=== PATIENT | female | born 1935 | race Caucasian/White ===

== ENCOUNTER 2016-05-12 18:18 | Emergency (ER) | payer MEDICARE, OTHER ==
[2016-05-12] MEDS ORDERED: BACITRACIN OINT TOP ONE (18:41)
--- NOTE | 2016-05-12 18:41 | ED Physician Documentation ---
PD HPI UPPER EXT INJURY - Stated complaint Stated Complaint: L THUMB LACERATION - Chief complaint Chief Complaint: Ext Problem - Additonal information Additional information: 80-year-old female with history of hypertension and hyperlipidemia who is right- hand dominant here with injury to left thumb. Patient was chopping cabbage when she nicked the tip of her left thumb. She denies any numbness or weakness to the thumb. She attempted to stop the bleeding at home but was unable to do so. She is not up-to-date with her tetanus vaccine. 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, 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 HEENT: Cataracts, Tonsil/Adenoidectomy - Present Medications Home Medications: Ambulatory Orders Medication Instructions Recorded Confirmed Atorvastatin Calcium 20 mg PO DAILY 06/24/15 05/12/16 Calcium Carbonate/Vitamin D3 1 each PO DAILY 06/24/15 05/12/16 [Calcium 500 + Vit D Caplet] Multivit with Calcium,Iron,Min 1 each PO DAILY 06/24/15 05/12/16 [Multiple Vitamins For Women] Psyllium [Metamucil] 1 packet PO DAILY 07/19/15 05/12/16 Latanoprost 0.005% Ophth Drops 1 drops OPTH QPM 08/02/15 05/12/16 [Xalatan Ophth Drops] - Allergies Allergies/Adverse Reactions: Allergies Allergy/AdvReac Type Severity Reaction Status Date / Time iodine Allergy Unknown Verified 06/24/15 11:24 morphine Allergy Unknown Verified 06/24/15 11:24 - Social History Does the pt smoke?: No Smoking Status: Never smoker Does the pt drink ETOH?: No Does the pt have substance abuse?: No - Immunizations Immunizations are current?: Yes PD ED PE NORMAL - Vitals Vital signs reviewed: Yes - General General: Alert and oriented X 3, No acute distress - HEENT HEENT: PERRL - Neck Neck: Supple, no meningeal sign - Cardiac Cardiac: RRR, No murmur - Respiratory Respiratory: Clear bilaterally - Abdomen Abdomen: Normal bowel sounds, Soft, Non tender, Non distended - Derm Derm: Warm and dry - Extremities Extremities: No deformity, Other (Very superficial avulsion of the distal tip of the left thumb with no active bleeding. Neurovascularly intact) - Neuro Neuro: Alert and oriented X 3 - Psych Psych: Normal mood, Normal affect Results - Vitals Vitals: Vital Signs - 24 hr 05/12/16 18:26 Temperature 36.6 C Heart Rate 88 Respiratory 20 Rate Blood Pressure 195/96 H O2 Saturation 95 Oxygen O2 Source Room air PD MEDICAL DECISION MAKING - ED course Complexity details: considered differential, d/w patient, d/w family ED course: 80-year-old female here with distal left thumb avulsion of the skin. Wound was here gated thoroughly, bacitracin and pressure dressing were applied. Patient was given wound care instructions and followup with her primary care physician. She has been given very strict return precautions. She is amenable to discharge at this time with followup. She had her tetanus shot updated. The avulsion is not amenable to laceration repair. This document was made in part using voice recognition software. While efforts are made to proofread this document, sound alike and grammatical errors may occur. Departure - Departure Disposition: 01 Home, Self Care Clinical Impression: Avulsion, finger tip Qualifiers: Encounter type: initial encounter Qualified Code(s): S61.209A - Unspecified open wound of unspecified finger without damage to nail, initial encounter Condition: Stable Instructions: ED Abrasion, ED Wound Care Follow-Up: Gary Chávez MD [Primary Care Provider] - Within 1 week Comments: Your blood pressure was elevated today on check in to the emergency department. This does not mean that you have hypertension, it is a common phenomenon to check into the emergency department and have elevated blood pressure. I recommend that you see your primary care physician within the week to have it rechecked when you're feeling better. Please followup with your primary care provider this week. Return to the ER for any redness, swelling, discharge from the wound, or any fevers, or for any other medical emergency.
[2016-05-12] MEDS ORDERED: TETANUS/DIPHTHERIA/PERTUSSIS 0.5 ML SYRINGE IM ONE (18:52)
[2016-05-12] MEDS: TETANUS/DIPHTHERIA TOXOID 0.5 ML SYRINGE IM ONE (18:56)
[2016-05-12 19:12] VITALS: BP 188/91
== END 2016-05-12 19:11 | disposition home or self-care (01) ==
LOC: ED 18:18
DX: S61.012A Laceration without foreign body of left thumb without damage to nail, initial encounter (principal); W26.0XXA Contact with knife, initial encounter; Y93.G1 Activity, food preparation and clean up; Y92.010 Kitchen of single-family (private) house as the place of occurrence of the external cause; Z23 Encounter for immunization; I10 Essential (primary) hypertension; E78.5 Hyperlipidemia, unspecified; E78.00 Pure hypercholesterolemia, unspecified; M19.90 Unspecified osteoarthritis, unspecified site
CPT/HCPCS: 90471; 99282; 99283

== ENCOUNTER 2016-12-13 01:13 | Outpatient (CLI) | payer MEDICARE, OTHER | END 2016-12-13 01:14 | disposition critical access hospital (66) | LOC: EMS 01:13 | PROVIDERS: ATTEND Surgery | DX: M54.5 Low back pain (principal) | CPT/HCPCS: A0425; A0429 ==

== ENCOUNTER 2016-12-13 01:26 | Emergency (ER) | payer MEDICARE, OTHER ==
[2016-12-13] MEDS ORDERED: SODIUM CHLORIDE 0.9% 1,000 ML IV ONE (01:42)
--- NOTE | 2016-12-13 01:42 | ED Physician Documentation ---
PD HPI BACK PAIN - Stated complaint Stated Complaint: LLQ PN - Chief complaint Chief Complaint: Abd Pain - History obtained from History obtained from: Patient, EMS - History of Present Illness Timing - onset: How many days ago (2) Timing - details: Waxing and waning Location: Mid, Left Quality: Pain Associated symptoms: No: Fever, Weakness, Numbness, Incontinent of urine, Unable to urinate Worsened by: Movement, Palpation Similar symptoms before: Has not had sx before Recently seen: Not recently seen - Additional information Additional information: Patient is an 81 year old female presenting to the emergency department for left flank pain. patient states that it has been going on for the last few days. patient states that she originally thought it was due to the way she was walking, secondary to foot pain. Patient states that tonight she was in bed and it was real severe so her helped her to the bathroom, and they called ems. Review of Systems Constitutional: denies: Fever, Chills, Myalgias Eyes: denies: Decreased vision Ears: reports: Reviewed and negative Nose: denies: Congestion, Sinus pressure / pain Throat: reports: Reviewed and negative Cardiac: denies: Chest pain / pressure, Palpitations, Calf pain Respiratory: denies: Dyspnea, Cough, Wheezing GI: denies: Abdominal Pain, Abdominal Swelling, Nausea, Vomiting, Constipation, Diarrhea : denies: Dysuria, Frequency, Hesitancy, Unable to Void, Hematuria Skin: denies: Rash, Lesions Musculoskeletal: reports: Back pain. 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, 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 HEENT: Cataracts, Tonsil/Adenoidectomy - Present Medications Home Medications: Ambulatory Orders Medication Instructions Recorded Confirmed Atorvastatin Calcium 20 mg PO DAILY 06/24/15 12/13/16 Multivit with Calcium,Iron,Min 1 each PO DAILY 06/24/15 12/13/16 [Multiple Vitamins For Women] Psyllium [Metamucil] 1 packet PO DAILY 07/19/15 12/13/16 Latanoprost 0.005% Ophth Drops 1 drops OPTH QPM 08/02/15 12/13/16 [Xalatan Ophth Drops] Lidocaine Patch 5% [Lidoderm Patch] 1 each TOP DAILY #14 patch 12/13/16 - Allergies Allergies/Adverse Reactions: Allergies Allergy/AdvReac Type Severity Reaction Status Date / Time iodine Allergy Unknown Verified 12/13/16 01:47 morphine Allergy Unknown Verified 12/13/16 01:47 - Social History Does the pt smoke?: No Smoking Status: Never smoker Does the pt drink ETOH?: No Does the pt have substance abuse?: No - Immunizations Immunizations are current?: Yes - POLST Patient has POLST: No PD ED PE NORMAL - Vitals Vital signs reviewed: Yes - General General: Alert and oriented X 3, No acute distress - HEENT HEENT: Atraumatic, PERRL - Neck Neck: Supple, no meningeal sign - Cardiac Cardiac: RRR, No murmur - Respiratory Respiratory: No respiratory distress - Abdomen Abdomen: Soft, Non tender, Non distended - Derm Derm: Normal color, Warm and dry, No rash - Extremities Extremities: No deformity, No tenderness to palpate, No edema - Neuro Neuro: Alert and oriented X 3, 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, No motor deficit, No sensory deficit - Psych Psych: Normal mood, Normal affect PD ED PE EXPANDED - Abdomen Abdomen: No: Distended, Rebound, Guarding - Back Back: CVA TTP left Results - Vitals Vitals: Vital Signs - 24 hr 12/13/16 12/13/16 01:29 03:38 Temperature 36.8 C Heart Rate 83 80 Respiratory 18 18 Rate Blood Pressure 207/83 H 186/69 H O2 Saturation 98 97 Oxygen O2 Source Room air - Labs Labs: Laboratory Tests 12/13/16 12/13/16 12/13/16 01:50 01:50 02:10 WBC 10.2 RBC 4.31 Hgb 13.7 Hct 39.8 MCV 92.3 MCH 31.7 H MCHC 34.4 RDW 12.9 Plt Count 201 MPV 8.6 Neut # 7.0 H Lymph # 1.7 Roberts # 1.0 Eos # 0.4 Baso # 0.1 Absolute Nucleated RBC 0.00 Nucleated RBC % 0.0 Sodium 138 Potassium 4.2 Chloride 104 Carbon Dioxide 26 Anion Gap 8.0 BUN 17 Creatinine 0.7 Estimated GFR (MDRD) 80 L Glucose 116 H Calcium 9.0 Total Bilirubin 0.6 AST 23 ALT 17 Alkaline Phosphatase 79 Total Protein 6.9 Albumin 4.0 Globulin 2.9 Albumin/Globulin Ratio 1.4 Lipase 27 Urine Color YELLOW Urine Clarity CLEAR Urine pH 6.5 Ur Specific Golden 1.020 Urine Protein NEGATIVE Urine Glucose (UA) NEGATIVE Urine Ketones NEGATIVE Urine Occult Blood TRACE-LYSE Urine Nitrite NEGATIVE Urine Bilirubin NEGATIVE Urine Urobilinogen 0.2 (NORMAL) Ur Leukocyte Esterase NEGATIVE Ur Microscopic Review NOT INDICATED Urine Culture Comments NOT INDICATED - Rads (name of study) ct abd and pelvis Radiology: Final report received (no obstruction, diverticulitis ), See rad report PD MEDICAL DECISION MAKING - ED course Complexity details: reviewed old records, reviewed results, re-evaluated patient , considered differential, d/w patient, d/w family ED course: Patient was seen and examined at bedside. IV access was gained, labs were drawn. patient was treated with fluids. urine was collected. patient was treated with toradol for pain. Imaging was ordered. Patient was treated with toradol for pain. When patient's diagnostics came back they were within normal limits. Patient was made aware of the possibility of underlying shingles. Patient required no further work up and was stable for discharge with outpatient follow up. Departure - Departure Disposition: 01 Home, Self Care Clinical Impression: Flank pain, acute Condition: Good Instructions: ED Flank Pain Uncertain Cause Follow-Up: primary,care provider [Other] - Within 3 Days Prescriptions: Lidocaine Patch 5% [Lidoderm Patch] 1 each TOP DAILY #14 patch Comments: Your diagnostics today were within normal limits. there was no explanation in the blood work or CT scan. The pain is likely musculoskeletal in nature. It is still a possibility that the pain is being caused by shingles and the rash has not appeared yet, you should continue to monitor for the rash. You can take motrin or tylenol for pain, as well as the lidoderm patch. If the symptoms persist you should follow up with your doctor.
[2016-12-13 02:04] LABS: BASOPHILS # (AUTO) 0.1 10^3/uL (0.0-0.1); BASOPHILS % (AUTO) 1.1 %; EOSINOPHILS # (AUTO) 0.4 10^3/uL (0.0-0.7); EOSINOPHILS % (AUTO) 3.8 %; HCT - HEMATOCRIT 39.8 % (37.0-47.0); HGB - HEMOGLOBIN 13.7 g/dL (12.0-16.0); LYMPHOCYTES # (AUTO) 1.7 10^3/uL (1.5-3.5); LYMPHOCYTES % (AUTO) 16.9 %; MEAN CORPUSCULAR HEMOGLOBIN 31.7 pg (27.0-31.0); MEAN CORPUSCULAR HGB CONC 34.4 g/dL (32.0-36.0); MEAN CORPUSCULAR VOLUME 92.3 fL (81.0-99.0); MEAN PLATELET VOLUME 8.6 fL (7.9-10.8); MONOCYTES % (AUTO) 9.9 %; NEUTROPHILS % (AUTO) 68.3 %; RED BLOOD COUNT 4.31 10^6/uL (4.20-5.40); RED CELL DISTRIBUTION WIDTH 12.9 % (12.0-15.0); UNCORRECTED WHITE BLOOD COUNT 10.2 x10^3/uL; WHITE BLOOD COUNT 10.2 x10^3/uL (4.8-10.8)
[2016-12-13 02:12] LABS: ALBUMIN/GLOBULIN RATIO 1.4 (1.0-2.2); BILIRUBIN,TOTAL 0.6 mg/dL (0.2-1.0); CREATININE 0.7 mg/dL (0.4-1.0); POTASSIUM 4.2 mmol/L (3.5-5.0); TOTAL PROTEIN 6.9 g/dL (6.7-8.2)
[2016-12-13 02:21] LABS: BILIRUBIN,URINE NEGATIVE (NEGATIVE); PH,URINE 6.5 PH (5.0-7.5); UA CHARGE (STRIP ONLY) YES; UR CULTURE IF IND NOT INDICATED
[2016-12-13] MEDS ORDERED: KETOROLAC 60 MG/2 ML VIAL IVP STA (02:36)
[2016-12-13] MEDS ORDERED: KETOROLAC 15 MG/ML VIAL ONE (02:43)
[2016-12-13] MEDS ORDERED: fentaNYL 100 MCG/2 ML VIAL IVP STA (03:02)
[2016-12-13] MEDS ORDERED: LIDOCAINE PATCH 5% TOP STA (03:02)
[2016-12-13] MEDS ORDERED: fentaNYL 100 MCG/2 ML VIAL ONE (03:08)
[2016-12-13] MEDS ORDERED: SODIUM CHLORIDE FLUSH 0.9% 10 ML SYRINGE IVP ONE (03:11)
[2016-12-13] MEDS ORDERED: LIDOCAINE PATCH 5% TOP ONE (03:39)
--- NOTE | 2016-12-13 03:49 | CT Preliminary Report ---
Exam: CT Abdomen/Pelvis W/O IMPRESSION: 1. Colonic diverticulosis. No definite evidence of diverticulitis. 2. Partial right hemicolectomy. No bowel obstruction seen. 3. No obstructive uropathy identified. 4. Umbilical hernia and infraumbilical ventral hernia, both containing fat. [facility] SITE ID: [id number]
--- NOTE | 2016-12-13 03:52 | CT Report ---
EXAM: CT ABDOMEN AND PELVIS EXAM DATE: 12/13/2016 03:18 AM. CLINICAL HISTORY: Left flank pain. COMPARISONS: None. TECHNIQUE: Routine helical CT imaging was performed through the abdomen and pelvis. IV contrast: None . Enteric contrast: No. Reconstructions: Coronal and sagittal. In accordance with CT protocol optimization, one or more of the following dose reduction techniques w ere utilized for this exam: automated exposure control, adjustment of mA and/or KV based on patient s ize, or use of iterative reconstructive technique. FINDINGS: Lung Bases: Bibasilar atelectasis. Coronary artery calcifications. Liver: No focal lesion identified on this noncontrast examination. Gallbladder/Bile Ducts: Status post cholecystectomy. Spleen: Normal. Pancreas: Normal. Adrenal Glands: Normal. Kidneys: Normal. No masses or hydronephrosis. Peritoneal Cavity/Bowel: Partial right hemicolectomy. Colonic diverticulosis. No definite diverticuli tis. No bowel obstruction seen. No free air or free fluid. No lymphadenopathy. Umbilical hernia conta ining fat. Infraumbilical ventral hernia containing fat. Pelvic Organs: Uterus is not seen. Visualized pelvic organs are otherwise unremarkable. Vasculature: Severe atherosclerosis. No aortic aneurysm. Bones: Degenerative changes in the spine. Grade 1 degenerative spondylolisthesis at L5-S1. Scoliosis. Other: None. IMPRESSION: 1. Colonic diverticulosis. No definite evidence of diverticulitis. 2. Partial right hemicolectomy. No bowel obstruction seen. 3. No obstructive uropathy identified. 4. Umbilical hernia and infraumbilical ventral hernia, both containing fat. [facility] Referring Provider Line: [phone] SITE ID: [id number]
[2016-12-13 04:10] VITALS: BP 210/73
== END 2016-12-13 04:10 | disposition home or self-care (01) ==
LOC: EDUNIT# → ED 01:26
DX: R10.32 Left lower quadrant pain (principal); E78.00 Pure hypercholesterolemia, unspecified; M19.90 Unspecified osteoarthritis, unspecified site
CPT/HCPCS: 36415; 74176; 80053; 81003; 83690; 85025; 96361; 96374; 96375; 99284; A9270; 81001; 87086

== ENCOUNTER 2017-01-06 08:15 | Outpatient (CLI) | payer MEDICARE, OTHER ==
[2017-01-06 14:49] LABS: BASOPHILS # (AUTO) 0.1 10^3/uL (0.0-0.1); BASOPHILS % (AUTO) 0.7 %; EOSINOPHILS # (AUTO) 0.3 10^3/uL (0.0-0.7); EOSINOPHILS % (AUTO) 3.7 %; HCT - HEMATOCRIT 41.9 % (37.0-47.0); HGB - HEMOGLOBIN 13.8 g/dL (12.0-16.0); LYMPHOCYTES # (AUTO) 1.5 10^3/uL (1.5-3.5); LYMPHOCYTES % (AUTO) 20.7 %; MEAN CORPUSCULAR HEMOGLOBIN 31.1 pg (27.0-31.0); MEAN CORPUSCULAR HGB CONC 32.9 g/dL (32.0-36.0); MEAN CORPUSCULAR VOLUME 94.4 fL (81.0-99.0); MEAN PLATELET VOLUME 9.5 fL (7.9-10.8); MONOCYTES # (AUTO) 0.6 10^3/uL (0.0-1.0); MONOCYTES % (AUTO) 8.5 %; NEUTROPHILS # (AUTO) 4.8 10^3/uL (1.5-6.6); NEUTROPHILS % (AUTO) 66.4 %; NUCLEATED RED BLOOD CELLS AUTO 0.1 /100WBC; RED BLOOD COUNT 4.44 10^6/uL (4.20-5.40); RED CELL DISTRIBUTION WIDTH 13.6 % (12.0-15.0); UNCORRECTED WHITE BLOOD COUNT 7.2 x10^3/uL; WHITE BLOOD COUNT 7.2 x10^3/uL (4.8-10.8)
[2017-01-06 15:19] LABS: ALBUMIN/GLOBULIN RATIO 1.6 (1.0-2.2); BILIRUBIN,TOTAL 0.7 mg/dL (0.2-1.0); BUN - BLOOD UREA NITROGEN 15 mg/dL (6-20); CALCIUM 9.2 mg/dL (8.5-10.3); CARBON DIOXIDE - CO2 26 mmol/L (21-32); CHLORIDE 100 mmol/L (101-111); CHOL/HDL RATIO 2.2 (<4.4); CHOLESTEROL 166 mg/dL; CREATININE 0.7 mg/dL (0.4-1.0); GFR - MDRD 80 (>89); GLUCOSE 94 mg/dL (70-100); HDL CHOLESTEROL 75 mg/dL; LDL/HDL RATIO 0.9 (<4.4); POTASSIUM 4.2 mmol/L (3.5-5.0); SODIUM 135 mmol/L (135-145); TOTAL PROTEIN 7.3 g/dL (6.7-8.2); TRIGLYCERIDES 111 mg/dL; VLDL CHOLESTEROL 22 mg/dL
== END 2017-01-06 08:16 | disposition home or self-care (01) ==
LOC: LAB.R 08:15
PROVIDERS: ATTEND Internal Medicine
DX: E78.5 Hyperlipidemia, unspecified (principal); C18.9 Malignant neoplasm of colon, unspecified; I34.1 Nonrheumatic mitral (valve) prolapse; R31.1 Benign essential microscopic hematuria; R03.0 Elevated blood-pressure reading, without diagnosis of hypertension; Z79.899 Other long term (current) drug therapy
CPT/HCPCS: 80053; 80061; 82378; 84443; 85025

== ENCOUNTER 2017-03-19 09:16 | Outpatient (CLI) | payer MEDICARE, OTHER ==
[2017-03-19 09:54] LABS: ALBUMIN 4.2 g/dL (3.2-5.5); ALBUMIN/GLOBULIN RATIO 1.6 (1.0-2.2); BILIRUBIN,TOTAL 0.7 mg/dL (0.2-1.0); CALCIUM 9.1 mg/dL (8.5-10.3); CREATININE 0.8 mg/dL (0.4-1.0); TOTAL PROTEIN 6.8 g/dL (6.7-8.2)
[2017-03-19 10:14] LABS: BASOPHILS % (AUTO) 0.5 %; EOSINOPHILS # (AUTO) 0.3 10^3/uL (0.0-0.7); EOSINOPHILS % (AUTO) 3.8 %; HGB - HEMOGLOBIN 13.6 g/dL (12.0-16.0); LYMPHOCYTES # (AUTO) 1.4 10^3/uL (1.5-3.5); LYMPHOCYTES % (AUTO) 21.9 %; MEAN CORPUSCULAR HEMOGLOBIN 31.3 pg (27.0-31.0); MEAN CORPUSCULAR HGB CONC 33.7 g/dL (32.0-36.0); MEAN CORPUSCULAR VOLUME 92.9 fL (81.0-99.0); MEAN PLATELET VOLUME 8.4 fL (7.9-10.8); MONOCYTES # (AUTO) 0.7 10^3/uL (0.0-1.0); MONOCYTES % (AUTO) 10.8 %; NEUTROPHILS # (AUTO) 4.1 10^3/uL (1.5-6.6); PLT - PLATELET COUNT 204 10^3/uL (130-450); RED BLOOD COUNT 4.34 10^6/uL (4.20-5.40); RED CELL DISTRIBUTION WIDTH 13.5 % (12.0-15.0); WHITE BLOOD COUNT 6.6 x10^3/uL (4.8-10.8)
== END 2017-03-19 09:17 | disposition home or self-care (01) ==
LOC: LAB 09:16
DX: Z01.812 Encounter for preprocedural laboratory examination (principal)
CPT/HCPCS: 36415; 80053; 85025

== ENCOUNTER 2017-04-12 15:55 | Outpatient (CLI) | payer MEDICARE, OTHER | END 2017-04-12 15:56 | disposition critical access hospital (66) | LOC: EMS 15:55 | PROVIDERS: ATTEND Surgery | DX: R07.9 Chest pain, unspecified (principal) | CPT/HCPCS: A0425; A0427 ==

== ENCOUNTER 2017-04-12 16:08 | Emergency (ER) | payer MEDICARE, OTHER ==
[2017-04-12] MEDS ORDERED: IOPAMIDOL-300 100 ML VIAL IVP ONE ×2 (16:09→17:12)
--- NOTE | 2017-04-12 16:22 | ED Physician Documentation ---
PD HPI CHEST PAIN - Stated complaint Stated Complaint: CP - Chief complaint Chief Complaint: Cardiac - History obtained from History obtained from: Patient, Family - History of Present Illness Timing - onset: How many hours ago (8) Timing - onset during: Rest Timing - duration: Hours (8) Timing - details: Abrupt onset Pain level max: 5 Pain level now: 4 Quality: Pain Location: Substernal Radiation: Neck Improved by: Rest, Nitro, ASA Worsened by: Inspiration Associated symptoms: No: Shortness of air, Diaphoresis, Nausea, Vomiting, Feeling faint / dizzy, General Weakness, Palpitations, Cough Similar symptoms before: Has not had sx before - Additional information Additional information: Patient is an 81-year-old female who presents to the emergency department with chest pain that has been constant since 8 AM today. Worse with movement and worse with deep breathing. Had a toe amputation 2 days ago [place] [facility] in [place]. Was in a splint before that. Has had some swelling to the right lower extremity. She states that she thinks this may be from the hydrocodone she is taking for pain. No cardiac history. EMS gave the patient aspirin and nitroglycerin with mild improvement in her symptoms. Review of Systems Constitutional: denies: Fever, Chills Ears: denies: Ear pain Nose: denies: Rhinorrhea / runny nose, Congestion Throat: denies: Sore throat Respiratory: denies: Cough GI: denies: Nausea, Vomiting, Diarrhea Skin: denies: Rash Musculoskeletal: denies: Neck pain, Back pain Neurologic: denies: Headache PD PAST MEDICAL HISTORY - Past Medical History Past Medical History: Yes Cardiovascular: High cholesterol Respiratory: None Endocrine/Autoimmune: None GI: None, Other : None HEENT: Glaucoma, Chronic hearing loss Psych: None Musculoskeletal: Osteoarthritis Derm: None - Past Surgical History Past Surgical History: Yes General: Cholecystectomy, Appendectomy, 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, 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 HEENT: Cataracts, Tonsil/Adenoidectomy - Present Medications Home Medications: Ambulatory Orders Medication Instructions Recorded Confirmed Atorvastatin Calcium 20 mg PO DAILY 06/24/15 04/12/17 Multivit with Calcium,Iron,Min 1 each PO DAILY 06/24/15 04/12/17 [Multiple Vitamins For Women] Psyllium [Metamucil] 1 packet PO DAILY 07/19/15 04/12/17 Latanoprost 0.005% Ophth Drops 1 drops OPTH QPM 08/02/15 04/12/17 [Xalatan Ophth Drops] Lidocaine Patch 5% [Lidoderm Patch] 1 each TOP DAILY #14 patch 12/13/16 - Allergies Allergies/Adverse Reactions: Allergies Allergy/AdvReac Type Severity Reaction Status Date / Time iodine Allergy Unknown Verified 12/13/16 01:47 morphine Allergy Unknown Verified 12/13/16 01:47 - Social History Does the pt smoke?: No Smoking Status: Never smoker Does the pt drink ETOH?: No Does the pt have substance abuse?: No - Immunizations Immunizations are current?: Yes - POLST Patient has POLST: No PD ED PE NORMAL - Vitals Vital signs reviewed: Yes - General General: Alert and oriented X 3, No acute distress, Well developed/nourished - HEENT HEENT: PERRL, Moist mucous membranes - Neck Neck: Supple, no meningeal sign, No JVD, No bruit - Cardiac Cardiac: RRR, Strong equal pulses - Respiratory Respiratory: No respiratory distress, Clear bilaterally - Abdomen Abdomen: Soft, Non tender, Non distended - Derm Derm: Warm and dry, No rash - Extremities Extremities: Other (swelling R LE, bandage in place. no signs of infection. no calf tenderness. ) - Neuro Neuro: Alert and oriented X 3 - Psych Psych: Normal mood, Normal affect Results - Vitals Vitals: Vital Signs - 24 hr 04/12/17 04/12/17 16:11 17:53 Temperature 37.1 C Heart Rate 97 79 Respiratory 16 16 Rate Blood Pressure 163/87 H 156/68 H O2 Saturation 94 96 Oxygen O2 Source Room air - EKG (time done) 1616 Rate: Rate (enter#) (95) Rhythm: NSR [place]: Normal Intervals: Normal [place] QRS: Normal Ischemia: Normal ST segments Computer interpretation: Agree with computer - Labs Labs: Laboratory Tests 04/12/17 04/12/17 04/12/17 16:40 16:40 16:40 WBC 11.9 H RBC 4.35 Hgb 13.3 Hct 38.6 MCV 88.9 MCH 30.6 MCHC 34.5 RDW 12.7 Plt Count 209 MPV 7.5 L Neut # 9.5 H Lymph # 0.9 L [place] # 1.1 H Eos # 0.3 Baso # 0.1 Absolute Nucleated RBC 0.00 Nucleated RBC % 0.0 Sodium 137 Potassium 4.5 Chloride 99 L Carbon Dioxide 27 Anion Gap 11.0 BUN 15 Creatinine 0.8 Estimated GFR (MDRD) 69 L Glucose 118 H Calcium 9.0 Total Bilirubin 0.5 AST 24 ALT 23 Alkaline Phosphatase 69 Troponin I < 0.04 Total Protein 6.5 L Albumin 3.7 Globulin 2.8 Albumin/Globulin Ratio 1.3 Lipase 18 L - Rads (name of study) CT PA Radiology: Prelim report reviewed, EMP read contemporaneously, See rad report ( No evidence of acute pulmonary embolism. No thoracic aortic dissection. No acute consolidation or effusion. There is basilar predominant subpleural reticulation with some honeycombing and traction bronchiectasis. 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 ) PD MEDICAL DECISION MAKING - ED course Complexity details: reviewed results, re-evaluated patient, considered differential (No ST elevation MN, no aortic dissection, no PE, no tension pneumothorax, no aortic aneurysm), d/w patient, d/w family ED course: Patient is an 81-year-old female who presents to the emergency department with chest tightness for the past 8 hours, thinks it may be related to her hydrocodone. She has stopped taking this. No evidence of acute MN or acute coronary syndrome. Normal EKG, negative troponin. No evidence of pulmonary embolus on CT pulmonary angiogram. Symptoms resolved in the emergency department. We will continue supportive care and follow-up with her doctor. Patient counseled regarding signs and symptoms for which I believe and urgent re -evaluation would be necessary. Patient with good understanding of and agreement to plan and is comfortable going home at this time This document was made in part using voice recognition software. While efforts are made to proofread this document, sound alike and grammatical errors may occur. Departure - Departure Disposition: 01 Home, Self Care Clinical Impression: Chest pain Qualifiers: Chest pain type: unspecified Qualified Code(s): R07.9 - Chest pain, unspecified Condition: Good Instructions: ED Chest Pain Atypical Unkn Cause Follow-Up: Gary Chávez MD [Primary Care Provider] - Within 3 Days Comments: Return if you worsen. Your tests are normal today other than some abnormalities in the bases of your lungs which can be followed up with your doctor.
[2017-04-12] MEDS ORDERED: IOPAMIDOL-300 100 ML VIAL ONE (16:32)
[2017-04-12 16:45] LABS: BASOPHILS # (AUTO) 0.1 10^3/uL (0.0-0.1); EOSINOPHILS # (AUTO) 0.3 10^3/uL (0.0-0.7); EOSINOPHILS % (AUTO) 2.2 %; HGB - HEMOGLOBIN 13.3 g/dL (12.0-16.0); LYMPHOCYTES # (AUTO) 0.9 10^3/uL (1.5-3.5); LYMPHOCYTES % (AUTO) 7.8 %; MEAN CORPUSCULAR HEMOGLOBIN 30.6 pg (27.0-31.0); MEAN CORPUSCULAR HGB CONC 34.5 g/dL (32.0-36.0); MEAN CORPUSCULAR VOLUME 88.9 fL (81.0-99.0); MEAN PLATELET VOLUME 7.5 fL (7.9-10.8); MONOCYTES # (AUTO) 1.1 10^3/uL (0.0-1.0); MONOCYTES % (AUTO) 9.2 %; NEUTROPHILS # (AUTO) 9.5 10^3/uL (1.5-6.6); NEUTROPHILS % (AUTO) 79.8 %; PLT - PLATELET COUNT 209 10^3/uL (130-450); RED BLOOD COUNT 4.35 10^6/uL (4.20-5.40); RED CELL DISTRIBUTION WIDTH 12.7 % (12.0-15.0); WHITE BLOOD COUNT 11.9 x10^3/uL (4.8-10.8)
[2017-04-12 17:00] LABS: ALBUMIN 3.7 g/dL (3.2-5.5); ALBUMIN/GLOBULIN RATIO 1.3 (1.0-2.2); BILIRUBIN,TOTAL 0.5 mg/dL (0.2-1.0); CREATININE 0.8 mg/dL (0.4-1.0); TOTAL PROTEIN 6.5 g/dL (6.7-8.2)
--- NOTE | 2017-04-12 17:36 | CT Report ---
EXAM: CT ANGIOGRAM CHEST EXAM DATE: 04/12/2017 05:13 PM. CLINICAL HISTORY: Chest pain. COMPARISON: None. TECHNIQUE: Routine helical imaging was performed through the chest in the pulmonary arterial phase. I V Contrast: 80 cc Isovue 300. Reconstructions: Coronal 3-D MIP reconstructions.Sagittal and coronal. In accordance with CT protocol optimization, one or more of the following dose reduction techniques w ere utilized for this exam: automated exposure control, adjustment of mA and/or KV based on patient s ize, or use of iterative reconstructive technique. FINDINGS: Pulmonary Arteries: Diagnostic quality: Adequate through the segmental arteries. No evidence for acute or chronic pulmona ry emboli. RV/LV is within normal limits. There is no interventricular septal bowing. There is no reflux of cont rast material in the IVC. Lungs/Pleura: There is basilar predominant subpleural reticulation. There is some mild associated hon eycombing and traction bronchiectasis. There is no evidence of acute infiltrate. No focal central air way abnormalities. No effusion. No pneumothorax. Mediastinum: Normal. No cardiac enlargement or adenopathy. Thoracic Aorta: Unremarkable. Upper Abdomen: Unremarkable. Other: None. IMPRESSION: 1. No evidence of acute pulmonary embolism. 2. No thoracic aortic dissection. 3. No acute consolidation or effusion. 4. There is basilar predominant subpleural reticulation with some honeycombing and traction bronchiec tasis. 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 [facility] Referring Provider Line: [phone] SITE ID: [id number]
[2017-04-12 17:54] VITALS: BP 156/68
== END 2017-04-12 18:02 | disposition home or self-care (01) ==
LOC: EDUNIT# → ED 16:08
DX: Z89.429 Acquired absence of other toe(s), unspecified side (principal)
CPT/HCPCS: 36415; 71275; 80053; 83690; 84484; 85025; 93005; 99284; Q9967

== ENCOUNTER 2017-09-10 08:00 | Outpatient (CLI) | payer MEDICARE, OTHER ==
[2017-09-10 13:27] LABS: CALCIUM 9.1 mg/dL (8.5-10.3); CREATININE 0.8 mg/dL (0.4-1.0)
== END 2017-09-10 08:01 | disposition home or self-care (01) ==
LOC: LAB.R 08:00
PROVIDERS: ATTEND Internal Medicine
DX: I10 Essential (primary) hypertension (principal)
CPT/HCPCS: 80048

== ENCOUNTER 2018-02-03 08:00 | Outpatient (CLI) | payer MEDICARE, OTHER ==
[2018-02-03 14:48] LABS: BASOPHILS # (AUTO) 0.1 10^3/uL (0.0-0.1); BASOPHILS % (AUTO) 1.1 %; EOSINOPHILS # (AUTO) 0.3 10^3/uL (0.0-0.7); EOSINOPHILS % (AUTO) 3.9 %; HGB - HEMOGLOBIN 14.1 g/dL (12.0-16.0); LYMPHOCYTES # (AUTO) 1.4 10^3/uL (1.5-3.5); LYMPHOCYTES % (AUTO) 19.7 %; MEAN CORPUSCULAR HEMOGLOBIN 32.2 pg (27.0-31.0); MEAN CORPUSCULAR HGB CONC 34.3 g/dL (32.0-36.0); MEAN CORPUSCULAR VOLUME 93.8 fL (81.0-99.0); MONOCYTES # (AUTO) 0.7 10^3/uL (0.0-1.0); MONOCYTES % (AUTO) 10.2 %; NEUTROPHILS # (AUTO) 4.7 10^3/uL (1.5-6.6); NEUTROPHILS % (AUTO) 65.1 %; PLT - PLATELET COUNT 254 10^3/uL (130-450); RED BLOOD COUNT 4.39 10^6/uL (4.20-5.40); RED CELL DISTRIBUTION WIDTH 13.6 % (12.0-15.0); WHITE BLOOD COUNT 7.2 x10^3/uL (4.8-10.8)
[2018-02-03 15:14] LABS: ALBUMIN 4.5 g/dL (3.2-5.5); ALBUMIN/GLOBULIN RATIO 1.7 (1.0-2.2); ALKALINE PHOSPHATASE 71 IU/L (42-121); ALT ALANINE AMINOTRANSFERASE 23 IU/L (10-60); AST ASPARTATE AMINOTRANSFERASE 24 IU/L (10-42); BUN - BLOOD UREA NITROGEN 11 mg/dL (6-20); CALCIUM 9.1 mg/dL (8.5-10.3); CARBON DIOXIDE - CO2 28 mmol/L (21-32); CHLORIDE 100 mmol/L (101-111); CHOL/HDL RATIO 1.9 (<4.4); CHOLESTEROL 140 mg/dL; CREATININE 0.8 mg/dL (0.4-1.0); GFR - MDRD 69 (>89); GLUCOSE 102 mg/dL (70-100); HDL CHOLESTEROL 75 mg/dL; LDL CHOLESTEROL,CALCULATED 33 mg/dL; LDL/HDL RATIO 0.4 (<4.4); SODIUM 134 mmol/L (135-145); TOTAL PROTEIN 7.2 g/dL (6.7-8.2); VLDL CHOLESTEROL 32 mg/dL
== END 2018-02-03 23:59 | disposition home or self-care (01) ==
LOC: LAB.R 08:00
PROVIDERS: ATTEND Internal Medicine
DX: I10 Essential (primary) hypertension (principal); E78.5 Hyperlipidemia, unspecified; C18.9 Malignant neoplasm of colon, unspecified; Z79.899 Other long term (current) drug therapy
CPT/HCPCS: 80053; 80061; 82378; 83721; 85025

== ENCOUNTER 2018-02-13 09:50 | Outpatient (CLI) | payer MEDICARE, OTHER ==
[2018-02-13 12:55] LABS: HB2 TOTAL 14.2 g/dL; HEMOGLOBIN A1C 0.55 g/dL; HEMOGLOBIN A1C % 5.7 % (4.6-6.2)
== END 2018-02-13 23:59 | disposition home or self-care (01) ==
LOC: LAB.R 09:50
PROVIDERS: ATTEND Internal Medicine
DX: R73.9 Hyperglycemia, unspecified (principal)
CPT/HCPCS: 83036

== ENCOUNTER 2018-03-19 09:38 | Outpatient (CLI) | payer MEDICARE, OTHER ==
--- NOTE | 2018-03-20 09:26 | Mammography Report ---
Reason: SCREENING MAMMOGRAM Procedure Date: 03/19/2018 Accession Number: [id number] / [id number] Procedure: [facility] - Screening Mammo w/[facility] CPT Code: FULL RESULT: EXAM: Screening Mammo w/[facility] DATE: 03/19/2018 10:30 AM CLINICAL HISTORY: Screening encounter. History of 15 years of hormone therapy as well as personal history of colon cancer. TECHNIQUE: Bilateral CC and MLO views were obtained. COMPARISON: 12/28/2015 through 09/25/2011. FINDINGS: The breasts demonstrate diffuse fatty replacement bilaterally. Typically benign coarse right breast calcifications are identified. Left breast demonstrates typically benign large rodlike calcifications which appear very similar compared to 2016, possibly very early vascular calcifications which would also be typically benign. No suspicious masses, clustered microcalcifications, or regions of architectural distortion are identified. IMPRESSION: Benign findings RECOMMENDATION: Routine annual screening unless otherwise clinically indicated. BIRADS CATEGORY 2: Benign findings STANDARD QUALIFYING STATEMENTS: 1. This examination was not reviewed with the aid of Computer-Aided Detection (CAD). 2. A negative or benign imaging report should not preclude biopsy if clinically suspicious findings are present. 3. Dense breasts may obscure an underlying neoplasm. 4. This examination was reviewed with the aid of 3D breast imaging (tomosynthesis).
== END 2018-03-19 09:39 | disposition home or self-care (01) ==
LOC: DI 09:38
PROVIDERS: ATTEND Internal Medicine
DX: Z12.31 Encounter for screening mammogram for malignant neoplasm of breast (principal)
CPT/HCPCS: 77063; 77067

== ENCOUNTER 2018-05-04 09:01 | Day surgery (SDC) | payer MEDICARE, OTHER ==
[2018-05-04] MEDS ORDERED: LACTATED RINGERS 1,000 ML IV ONE (10:08)
[2018-05-04] MEDS ORDERED: MIDAZOLAM 2 MG/2 ML VIAL IVP ONE (10:27)
[2018-05-04] MEDS ORDERED: fentaNYL 100 MCG/2 ML VIAL IVP ONE (10:27)
[2018-05-04 11:28] VITALS: BP 128/82
== END 2018-05-04 09:02 | disposition home or self-care (01) ==
LOC: SDS 09:01
PROVIDERS: ATTEND Surgery
PROC: 0DJD8ZZ Inspection of Lower Intestinal Tract, Via Natural or Artificial Opening Endoscopic (ICD-10-PCS; principal; 2018-05-04 10:30)
DX: Z12.11 Encounter for screening for malignant neoplasm of colon (principal); Z85.038 Personal history of other malignant neoplasm of large intestine; Z86.010 Personal history of colon polyps; K57.30 Diverticulosis of large intestine without perforation or abscess without bleeding; K64.8 Other hemorrhoids; Z90.49 Acquired absence of other specified parts of digestive tract; I10 Essential (primary) hypertension; Z87.891 Personal history of nicotine dependence
CPT/HCPCS: G0105; J7120

== ENCOUNTER 2019-01-20 16:10 | Outpatient (CLI) | payer MEDICARE, OTHER ==
--- NOTE | 2019-01-21 15:36 | XRAY Report ---
Reason: PND, DYSPNEA, ELBOW PAIN, LEFT Procedure Date: 01/20/2019 Accession Number: [id number] / [id number] Procedure: XR - Elbow 3 View LT CPT Code: Final Report FULL RESULT: EXAM: LEFT ELBOW RADIOGRAPHY EXAM DATE: 01/20/2019 04:41 PM. CLINICAL HISTORY: Left elbow pain status post fall in November 2018. COMPARISON: None. TECHNIQUE: 3 views. FINDINGS: Bones: No acute fracture line clearly identified. No focal bone lesion. Joints: There is joint space narrowing of the medial and lateral compartments with periarticular osteophytes developing. There is mild prominence to the anterior and posterior fat pads suggesting joint effusion. 2 chronic appearing osseous bodies present overlying the anterior joint compartment measuring 6-7 mm, potentially loose bodies. Soft Tissues: No soft tissue swelling evident. Scattered soft tissue calcifications about the dorsal proximal forearm present. IMPRESSION: 1. No fracture line identified. 2. Small joint effusion. 3. Two potential loose bodies overlying the anterior joint space. 4. 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 [facility]
--- NOTE | 2019-01-21 15:38 | XRAY Report ---
Reason: PND, DYSPNEA, ELBOW PAIN, LEFT Procedure Date: 01/20/2019 Accession Number: [id number] / [id number] Procedure: XR - Chest 2 View X-Ray CPT Code: 95457 Final Report FULL RESULT: EXAM: CHEST RADIOGRAPHY EXAM DATE: 01/20/2019 04:40 PM. CLINICAL HISTORY: PND, DYSPNEA, ELBOW PAIN, LEFT. COMPARISON: CHEST 2 VIEW PA/LAT 02/12/2016 10:57 AM. TECHNIQUE: 2 views. FINDINGS: Lungs/Pleura: No focal opacities evident. No pleural effusion. No pneumothorax. Normal volumes. Mediastinum: The heart size is normal. There is mild to moderate tortuosity and calcification of the thoracic aorta. The trachea is midline. Other: None. IMPRESSION: Negative for an acute cardiopulmonary abnormality. RADIA
== END 2019-01-20 16:11 | disposition home or self-care (01) ==
LOC: DI 16:10
PROVIDERS: ATTEND Family Medicine
DX: R06.00 Dyspnea, unspecified (principal); M19.022 Primary osteoarthritis, left elbow
CPT/HCPCS: 71046

== ENCOUNTER 2019-01-22 08:10 | Outpatient (CLI) | payer MEDICARE, OTHER ==
[2019-01-22 08:43] LABS: BASOPHILS % (AUTO) 0.6 %; EOSINOPHILS # (AUTO) 0.3 10^3/uL (0.0-0.7); EOSINOPHILS % (AUTO) 3.8 %; HGB - HEMOGLOBIN 13.8 g/dL (12.0-16.0); LYMPHOCYTES # (AUTO) 1.2 10^3/uL (1.5-3.5); LYMPHOCYTES % (AUTO) 17.1 %; MEAN CORPUSCULAR HGB CONC 33.3 g/dL (32.0-36.0); MEAN CORPUSCULAR VOLUME 96.3 fL (81.0-99.0); MEAN PLATELET VOLUME 9.7 fL (7.9-10.8); MONOCYTES # (AUTO) 0.7 10^3/uL (0.0-1.0); MONOCYTES % (AUTO) 9.7 %; NEUTROPHILS # (AUTO) 4.7 10^3/uL (1.5-6.6); NEUTROPHILS % (AUTO) 68.4 %; PLT - PLATELET COUNT 221 10^3/uL (130-450); RED BLOOD COUNT 4.31 10^6/uL (4.20-5.40); WHITE BLOOD COUNT 6.9 x10^3/uL (4.8-10.8)
[2019-01-22 09:11] LABS: ALBUMIN 4.2 g/dL (3.2-5.5); ALBUMIN/GLOBULIN RATIO 1.6 (1.0-2.2); BILIRUBIN,TOTAL 0.9 mg/dL (0.2-1.0); CALCIUM 8.9 mg/dL (8.5-10.3); CREATININE 0.7 mg/dL (0.4-1.0); TOTAL PROTEIN 6.8 g/dL (6.7-8.2)
== END 2019-01-22 08:11 | disposition home or self-care (01) ==
LOC: LAB 08:10
PROVIDERS: ATTEND Family Medicine
DX: C18.9 Malignant neoplasm of colon, unspecified (principal); R06.00 Dyspnea, unspecified
CPT/HCPCS: 36415; 80053; 82378; 83880; 85025

== ENCOUNTER 2019-03-02 21:30 | Emergency (ER) | payer MEDICARE, OTHER ==
--- NOTE | 2019-03-02 22:04 | ED Physician Documentation ---
PD HPI SKIN - Stated complaint Stated Complaint: LE RASH - Chief complaint Chief Complaint: Wound - History obtained from History obtained from: Patient, Family - History of Present Illness Timing - onset: Yesterday Timing - duration: Days (1) Timing - details: Gradual onset, Still present Location: RLE, LLE Quality / character: Itchy, Discolored. No: Painful, Burning, Vesicular, Crusted, Swelling, Draining Contributing factors: Unknown Similar symptoms before: Has not had sx before Recently seen: Not recently seen - Additional information Additional information: 83-year-old female previously well has developed a rash to the right lateral aspect of her foot yesterday morning and she has noticed that this rash now involves both of her lower extremities all the way up to her knees. She states that this itches mildly and is not particularly bothersome but she became concerned when the rash appeared to creep up her leg. She has not otherwise been ill she has not had any fever chills cough or sputum production. She has not been exposed to any new medications or new detergents or soaps she took a shower Friday morning she has been wearing the normal clothes that she has worn forever and she is wearing cotton socks, does not wear compression socks, and has not had specific exposure that she can recall specifically to her lower extremities. She does use some lotion to her legs and back that she has used for a long time. Review of Systems Constitutional: denies: Fever, Chills, Myalgias Ears: denies: Ear pain Nose: denies: Congestion Throat: denies: Sore throat Cardiac: denies: Chest pain / pressure, Palpitations Respiratory: denies: Dyspnea, Cough GI: denies: Abdominal Pain, Nausea, Vomiting : denies: Dysuria, Frequency Skin: reports: Rash Musculoskeletal: denies: Neck pain, Back pain, Extremity pain Neurologic: denies: Generalized weakness, Focal weakness, Numbness PD PAST MEDICAL HISTORY - Past Medical History Past Medical History: Yes Cardiovascular: Hypertension, High cholesterol Respiratory: None Neuro: None Endocrine/Autoimmune: None GI: Other PISTON MAKER: None : None HEENT: Glaucoma, Chronic hearing loss Psych: None Musculoskeletal: None Derm: None - Past Surgical History Past Surgical History: Yes General: Cholecystectomy, Appendectomy Ortho: Other /PISTON MAKER: 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 HEENT: Cataracts - Present Medications Home Medications: Ambulatory Orders Medication Instructions Recorded Confirmed Atorvastatin Calcium 20 mg PO DAILY 06/24/15 04/12/17 Multivit with Calcium,Iron,Min 1 each PO DAILY 06/24/15 04/12/17 [Multiple Vitamins For Women] Psyllium [Metamucil] 1 packet PO DAILY 07/19/15 04/12/17 Latanoprost 0.005% Ophth Drops 1 drops OPTH QPM 08/02/15 04/12/17 [Xalatan Ophth Drops] Lidocaine Patch 5% [Lidoderm Patch] 1 each TOP DAILY #14 patch 12/13/16 - Allergies Allergies/Adverse Reactions: Allergies Allergy/AdvReac Type Severity Reaction Status Date / Time hydrocodone Allergy Unknown Verified 03/02/19 21:38 hydroxyzine Allergy Unknown Verified 03/02/19 21:38 iodine Allergy Unknown Verified 03/02/19 21:38 morphine Allergy Unknown Verified 03/02/19 21:38 - Social History Does the pt smoke?: No Smoking Status: Never smoker Does the pt drink ETOH?: No Does the pt have substance abuse?: No - Immunizations Immunizations are current?: Yes - POLST Patient has POLST: No PD ED PE NORMAL - Vitals Vital signs reviewed: Yes (tachy and hypertensive ) - General General: Alert and oriented X 3, No acute distress, Well developed/nourished - HEENT HEENT: Atraumatic, PERRL, EOMI - Neck Neck: Supple, no meningeal sign - Cardiac Cardiac: RRR, No murmur - Respiratory Respiratory: No respiratory distress, Clear bilaterally - Abdomen Abdomen: Soft, Non tender - Back Back: No CVA TTP, No spinal TTP - Derm Derm: Normal color, Warm and dry, Other (There is erythematous finely dry skin to the both lower extremities that is not particularly raised very nonspecific in appearance. Appears to be similar to contact dermatitis. Does not appear consistent with cellulitis.) - Extremities Extremities: No deformity, No edema - Neuro Neuro: Alert and oriented X 3, manager mission 2-12 intact, No motor deficit, No sensory deficit, Normal speech Eye Opening: Spontaneous Motor: Obeys Commands Verbal: Oriented GCS Score: 15 - Psych Psych: Normal mood, Normal affect Results - Vitals Vitals: Vital Signs - 24 hr 03/02/19 21:34 Temperature 36.8 C Heart Rate 113 H Respiratory 16 Rate Blood Pressure 194/75 H O2 Saturation 97 Oxygen O2 Source Room air PD MEDICAL DECISION MAKING - ED course Complexity details: considered differential, d/w patient, d/w family ED course: 83-year-old female with a very nonspecific appearing rash to her lower extremities does not have an obvious source for contact but this does look like a contact dermatitis. I have explained to the patient the nature of contact d ermatitis and general principles of treatment to include washing the legs and applying hydrocortisone. She will follow-up with your primary or her asic engineer for any progression of symptoms. Departure - Departure Disposition: 01 Home, Self Care Clinical Impression: Contact dermatitis Qualifiers: Contact dermatitis type: irritant Contact dermatitis trigger: unspecified trigger Qualified Code(s): L24.9 - Irritant contact dermatitis, unspecified cause Condition: Stable Instructions: ED Dermatitis Contact Follow-Up: Marcio Odom MD [Primary Care Provider] - Comments: Tonight the rash you have appears non-specific and most likely a contact dermatitis. The recommendation is to first wash your legs and then apply 1% hydrocortisone available over the counter.
[2019-03-02 22:45] VITALS: BP 138/94
== END 2019-03-02 22:55 | disposition home or self-care (01) ==
LOC: ED 21:30
DX: L24.9 Irritant contact dermatitis, unspecified cause (principal); I10 Essential (primary) hypertension
CPT/HCPCS: 99282

== ENCOUNTER 2019-11-16 12:50 | Outpatient (CLI) | payer MEDICARE, OTHER ==
--- NOTE | 2019-11-16 14:04 | DEXA Report ---
PROCEDURE: Dexa Spine and/or Hip INDICATIONS: OSTEOPOROSIS,BONE DISORDER,POST MENOPAUSAL TECHNIQUE: Dual energy x-ray absorptiometry (DXA) was performed on a [employer] System. Regions measur ed are the AP Spine, femoral neck, and if needed forearm. COMPARISON: 12/28/2015. FINDINGS: Lumbar Spine: Bone Mineral Density 1.549 g/cm/cm,T score 3.1, normal Left Femoral Neck: Bone Mineral Density 0.836 g/cm/cm, T score -1.4, osteopenic (T score greater or equal to -1.0: NORMAL) (T score from -1.1 to -2.4: OSTEOPENIA) (T score less than or equal to -2.5 to: OSTEOPOROSIS) Impression: Osteopenia. Patient is at increased risk for fracture. Patients with diagnosis of osteoporosis or osteopenia should have regular bone mineral density assess ment. For those eligible for Medicare, routine testing is allowed once every 2 years. Testing frequ ency can be increased for patients who have rapidly progressing disease or for those who are receivin g medical therapy to restore bone mass. Reviewed by: Say Holden MD on 11/16/2019 2:03 PM PDT Approved by: Say Holden MD on 11/16/2019 2:03 PM PDT Station ID: [id number]
== END 2019-11-16 12:51 | disposition home or self-care (01) ==
LOC: DI 12:50
PROVIDERS: ATTEND Family Medicine
DX: M85.88 Other specified disorders of bone density and structure, other site (principal)
CPT/HCPCS: 77080

== ENCOUNTER 2020-03-14 11:50 | Outpatient (CLI) | payer MEDICARE, OTHER ==
[2020-03-14] MEDS ORDERED: IOVERSOL 320 100 ML VIAL IVP ONE ×2 (12:18→14:44)
--- NOTE | 2020-03-14 17:10 | CT Report ---
PROCEDURE: CHEST W INDICATIONS: COUGH, ABN LUNG EXAM CONTRAST: IV CONTRAST: Optiray 320 ml: 90 PO CONTRAST: *NO PO CONTRAST TECHNIQUE: After the administration of intravenous contrast, 5 mm thick sections acquired from the pulmonary api олег to the posterior costophrenic angles. 7 mm thick coronal MIP reformats were acquired. For radia tion dose reduction, the following was used: automated exposure control, adjustment of mA and/or kV according to patient size. COMPARISON: None. FINDINGS: Image quality: Excellent. Lungs and pleura: No acute air space opacities. There does appear to be mild compressive atelectasi s likely superimposed on mild peripheral pulmonary fibrotic change, at the posterior lung bases sligh tly greater on the right than the left. No pleural effusions or pneumothorax. Central and peripheral airways are patent and normal in caliber. Mediastinum: Heart size is normal. No pericardial effusion. No mediastinal or hilar adenopathy by size criteria. Thoracic aorta and central pulmonary arteries are normal in size. Esophagus is josé l in caliber. No hiatal hernia. Bones and chest wall: No suspicious bony lesions. No vertebral body compression fractures. No axil eladio or supraclavicular adenopathy by size criteria. Thyroid gland appears normal where well seen. Abdomen: Visualized upper abdominal solid organs appear normal. Upper abdominal bowel loops are nor mal in caliber. IMPRESSION: A definite source of cough is not found. No pneumonia or neoplasm is identified. What appears to be c ompressive atelectasis is seen at the lung bases posteriorly at the deep costophrenic sulcus inferior ly, superimposed upon by chronic mild fibrotic change peripherally, accentuated by supine positioning . Currently no active alveolitis is present. Reviewed by: Radu Briceño MD on 03/14/2020 5:09 PM PST Approved by: Radu Briceño MD on 03/14/2020 5:09 PM PST Station ID: [id number]
== END 2020-03-14 11:51 | disposition home or self-care (01) ==
LOC: DI 11:50
PROVIDERS: ATTEND Internal Medicine
DX: R05 Cough (principal); R91.8 Other nonspecific abnormal finding of lung field
CPT/HCPCS: 71260; Q9967

== ENCOUNTER 2021-08-06 12:22 | Outpatient (CLI) | payer MEDICARE, OTHER ==
--- NOTE | 2021-08-06 13:04 | XRAY Report ---
PROCEDURE: Chest 2 View X-Ray INDICATIONS: COUGH TECHNIQUE: 2 view(s) of the chest. COMPARISON: None. FINDINGS: Surgical changes and devices: None. Lungs and pleura: Lungs are hyperinflated consistent with COPD. Bilateral lower lobe infiltrates. No pleural effusions or pneumothorax. Mediastinum: Mediastinal contours are normal. Heart size is normal. Bones and chest wall: No suspicious bony abnormalities. Soft tissues appear unremarkable. IMPRESSION: 1. Bilateral lower lobe infiltrates consistent with pneumonia. 2. COPD. Reviewed by: Anais Davis MD on 08/06/2021 1:02 PM PDT Approved by: Anais Davis MD on 08/06/2021 1:02 PM PDT Station ID: [id number]
== END 2021-08-06 12:23 | disposition home or self-care (01) ==
LOC: DI 12:22
PROVIDERS: ATTEND Internal Medicine
DX: R91.8 Other nonspecific abnormal finding of lung field (principal); J44.9 Chronic obstructive pulmonary disease, unspecified

== ENCOUNTER 2021-09-05 13:40 | Outpatient (CLI) | payer MEDICARE, OTHER ==
--- NOTE | 2021-09-05 16:46 | XRAY Report ---
PROCEDURE: Chest 2 View X-Ray INDICATIONS: COUGH,PNEUMONIA TECHNIQUE: 2 view(s) of the chest. COMPARISON: None. FINDINGS: Surgical changes and devices: None. Lungs and pleura: No pleural effusions or pneumothorax. Lungs are clear. Lungs hyperinflated chest and COPD. Mediastinum: Mediastinal contours are normal. Heart size is normal. Bones and chest wall: No suspicious bony abnormalities. Soft tissues appear unremarkable. IMPRESSION: No acute cardiopulmonary disease process. Reviewed by: Dana Aguirre MD, PhD on 09/05/2021 4:45 PM PDT Approved by: Dana Aguirre MD, PhD on 09/05/2021 4:45 PM PDT Station ID: [id number]
== END 2021-09-05 13:41 | disposition home or self-care (01) ==
LOC: DI 13:40
PROVIDERS: ATTEND Internal Medicine
DX: R05.9 Cough, unspecified (principal); J18.9 Pneumonia, unspecified organism

== ENCOUNTER 2022-01-01 10:23 | Outpatient (CLI) | payer MEDICARE, OTHER ==
--- NOTE | 2022-01-01 10:49 | XRAY Report ---
PROCEDURE: Chest 2 View X-Ray INDICATIONS: SHORT OF BREATH TECHNIQUE: 2 views of the chest were obtained. COMPARISON: Chest x-ray 09/03/2021 FINDINGS: Cardiac mediastinal silhouette is normal in size and contour. No effusions, consolidations or pneumot horax. Osseous and soft tissue structures are unremarkable. There is trace blunting of the costophren ic angles suggestive of scarring, given stability. IMPRESSION: No acute pulmonary process. Reviewed by: Opal Jay MD on 01/01/2022 10:47 AM PDT Approved by: Opal Jay MD on 01/01/2022 10:47 AM PDT Station ID: [id number]
== END 2022-01-01 10:24 | disposition home or self-care (01) ==
LOC: DI 10:23
PROVIDERS: ATTEND Internal Medicine
DX: R05.9 Cough, unspecified (principal); R06.02 Shortness of breath

== ENCOUNTER 2022-03-22 08:00 | Outpatient (CLI) | payer MEDICARE, OTHER ==
[2022-03-22 16:22] LABS: BASOPHILS # (AUTO) 0.1 10^3/uL (0.0-0.1); BASOPHILS % (AUTO) 0.6 %; EOSINOPHILS # (AUTO) 0.3 10^3/uL (0.0-0.7); EOSINOPHILS % (AUTO) 3.4 %; HCT - HEMATOCRIT 25.9 % (37.0-47.0); HGB - HEMOGLOBIN 7.6 g/dL (12.0-16.0); LYMPHOCYTES # (AUTO) 1.3 10^3/uL (1.5-3.5); MEAN CORPUSCULAR HEMOGLOBIN 23.8 pg (27.0-31.0); MEAN CORPUSCULAR HGB CONC 29.3 g/dL (32.0-36.0); MEAN CORPUSCULAR VOLUME 81.2 fL (81.0-99.0); MEAN PLATELET VOLUME 10.8 fL (7.9-10.8); MONOCYTES # (AUTO) 0.9 10^3/uL (0.0-1.0); MONOCYTES % (AUTO) 11.2 %; NEUTROPHILS # (AUTO) 5.4 10^3/uL (1.5-6.6); NEUTROPHILS % (AUTO) 68.5 %; PLT - PLATELET COUNT 367 10^3/uL (130-450); RED BLOOD COUNT 3.19 10^6/uL (4.20-5.40); RED CELL DISTRIBUTION WIDTH 15.4 % (12.0-15.0); WHITE BLOOD COUNT 7.9 x10^3/uL (4.8-10.8)
[2022-03-22 16:54] LABS: ALBUMIN 3.5 g/dL (3.2-5.5); ALBUMIN/GLOBULIN RATIO 1.3 (1.0-2.2); ALKALINE PHOSPHATASE 58 IU/L (42-121); ALT ALANINE AMINOTRANSFERASE 14 IU/L (10-60); AST ASPARTATE AMINOTRANSFERASE 19 IU/L (10-42); BILIRUBIN,TOTAL 0.4 mg/dL (0.2-1.0); BUN - BLOOD UREA NITROGEN 17 mg/dL (6-20); CALCIUM 8.7 mg/dL (8.5-10.3); CARBON DIOXIDE - CO2 24 mmol/L (21-32); CHLORIDE 103 mmol/L (101-111); CHOL/HDL RATIO 1.8 (<4.4); CHOLESTEROL 147 mg/dL; CK- CREATINE KINASE 84 IU/L (22-269); CREATININE 0.8 mg/dL (0.4-1.0); GFR - MDRD 68 (>89); GLUCOSE 91 mg/dL (70-100); HDL CHOLESTEROL 80 mg/dL; LDL CHOLESTEROL,CALCULATED 47 mg/dL; LDL/HDL RATIO 0.6 (<4.4); POTASSIUM 4.3 mmol/L (3.5-5.0); SODIUM 136 mmol/L (135-145); TOTAL PROTEIN 6.3 g/dL (6.7-8.2); TRIGLYCERIDES 101 mg/dL; VLDL CHOLESTEROL 20 mg/dL
[2022-03-22 19:55] LABS: ESTIMATED AVERAGE GLUCOSE 114 mg/dL (70-100); HEMOGLOBIN A1c% 5.6 % (4.27-6.07)
[2022-03-23 17:08] LABS: ANTI-DNA (DS) AB QN <1 IU/mL (0-9); CENTROMERE B ANTIBODIES <0.2 AI (0.0-0.9); CHROMATIN ANTIBODIES <0.2 AI (0.0-0.9); JO-1 AB <0.2 AI (0.0-0.9); RIBOSOMAL P ANTIBODIES <0.2 AI (0.0-0.9); RNP ANTIBODIES 0.3 AI (0.0-0.9); SCLERODERMA-70 ANTIBODIES <0.2 AI (0.0-0.9); SJOGREN'S ANTI-SS-A <0.2 AI (0.0-0.9); SJOGREN'S ANTI-SS-B <0.2 AI (0.0-0.9); SMITH ANTIBODIES <0.2 AI (0.0-0.9); SMITH/RNP ANTIBODIES <0.2 AI (0.0-0.9)
== END 2022-03-22 23:59 | disposition home or self-care (01) ==
LOC: LAB.R 08:00
PROVIDERS: ATTEND Internal Medicine
DX: Z00.00 Encounter for general adult medical examination without abnormal findings (principal); C18.9 Malignant neoplasm of colon, unspecified; K11.7 Disturbances of salivary secretion; R06.09 Other forms of dyspnea; R63.1 Polydipsia; H40.9 Unspecified glaucoma; H91.90 Unspecified hearing loss, unspecified ear; R73.01 Impaired fasting glucose; G47.00 Insomnia, unspecified; M79.601 Pain in right arm; I73.00 Raynaud's syndrome without gangrene; L98.9 Disorder of the skin and subcutaneous tissue, unspecified; Z79.899 Other long term (current) drug therapy
CPT/HCPCS: 80053; 80061; 82550; 83036; 83516; 83721; 84443; 85025; 86225; 86235

== ENCOUNTER 2022-03-25 13:18 | Outpatient (CLI) | payer MEDICARE, OTHER ==
[2022-03-25] MEDS ORDERED: ALBUTEROL 1 PUFF INH STA (15:08)
== END 2022-03-25 13:19 | disposition home or self-care (01) ==
LOC: RT 13:18
PROVIDERS: ATTEND Internal Medicine
DX: R05.3 Chronic cough (principal)
CPT/HCPCS: 94060; 94729

== ENCOUNTER 2022-03-29 08:00 | Outpatient (CLI) | payer MEDICARE, OTHER ==
[2022-03-29 16:03] LABS: ABSOLUTE RETICS # AUTO 0.054 10^6/uL (0.020-0.110); BASOPHILS % (AUTO) 0.4 %; EOSINOPHILS # (AUTO) 0.2 10^3/uL (0.0-0.7); EOSINOPHILS % (AUTO) 2.3 %; HCT - HEMATOCRIT 25.2 % (37.0-47.0); HGB - HEMOGLOBIN 7.6 g/dL (12.0-16.0); LYMPHOCYTES # (AUTO) 1.2 10^3/uL (1.5-3.5); LYMPHOCYTES % (AUTO) 12.9 %; MEAN CORPUSCULAR HEMOGLOBIN 23.4 pg (27.0-31.0); MEAN CORPUSCULAR HGB CONC 30.2 g/dL (32.0-36.0); MEAN CORPUSCULAR VOLUME 77.5 fL (81.0-99.0); MEAN PLATELET VOLUME 10.5 fL (7.9-10.8); MONOCYTES # (AUTO) 0.9 10^3/uL (0.0-1.0); MONOCYTES % (AUTO) 9.6 %; NEUTROPHILS # (AUTO) 6.9 10^3/uL (1.5-6.6); NEUTROPHILS % (AUTO) 74.6 %; PLT - PLATELET COUNT 299 10^3/uL (130-450); RED BLOOD COUNT 3.25 10^6/uL (4.20-5.40); RED CELL DISTRIBUTION WIDTH 15.5 % (12.0-15.0); RETICULOCYTE COUNT % (AUTO) 1.66 % (0.5-2.3); WHITE BLOOD COUNT 9.3 x10^3/uL (4.8-10.8)
[2022-03-29 16:28] LABS: % IRON SATURATION 3 % (20-50); IRON 16 ug/dL (28-170); TOTAL IRON BINDING CAPACITY 554 ug/dL (250-450); TRANSFERRIN 396 mg/dL (192-382)
[2022-03-29 16:52] LABS: FERRITIN 4.1 ng/mL (11.0-306.8)
[2022-03-29 17:31] LABS: FOLATE > 49.60 ng/mL (5.90 - >24.8)
== END 2022-03-29 23:59 | disposition home or self-care (01) ==
LOC: LAB.R 08:00
PROVIDERS: ATTEND Internal Medicine
DX: D64.9 Anemia, unspecified (principal)
CPT/HCPCS: 82607; 82728; 82746; 83010; 83540; 83615; 84466; 85025; 85045

== ENCOUNTER 2022-04-16 04:18 | Outpatient (CLI) | payer MEDICARE, OTHER | END 2022-04-16 04:19 | disposition critical access hospital (66) | LOC: EMS 04:18 | DX: R10.30 Lower abdominal pain, unspecified (principal); R10.13 Epigastric pain; R11.0 Nausea | CPT/HCPCS: A0425; A0429 ==

== ENCOUNTER 2022-04-16 04:31 | Inpatient (IN) | payer MEDICARE, OTHER ==
--- NOTE | 2022-04-16 04:55 | ED Physician Documentation ---
PD HPI ABD PAIN - Stated complaint Stated Complaint: ABD PAIN, CRAMPING - History obtained from History obtained from: Patient - History of Present Illness Timing - details: Gradual onset, Intermittant, Waxing and waning Quality: Cramping, Pain Location: All over / everywhere Radiation: Other (no radiation) Improved by: Other (nothing) Worsened by: Eating Associated symptoms: Nausea, Vomiting. No: Fever Similar symptoms before: Has not had sx before Recently seen: Not recently seen - Additional information Additional information: Brought in by ambulance. HPI from patient. Patient complains of generalized cramping abdominal pain, waxing and waning since last night (approximately 6 to 8 hours prior to arrival). The pain is becoming more frequent, more intense, and lasting longer per episode, and has become increasingly associate with nausea and vomiting. Patient denies history of similar pain. Patient's past surgical history includes appendectomy, cholecystectomy, and surgery related to colon cancer. Patient says last bowel movement was yesterday. Review of Systems Constitutional: denies: Fever, Chills, Sweats Cardiac: reports: Reviewed and negative Respiratory: reports: Reviewed and negative GI: reports: Abdominal Pain, Abdominal Swelling, Nausea, Vomiting. denies: Constipation, Diarrhea : denies: Dysuria, Frequency PD PAST MEDICAL HISTORY - Past Medical History Cardiovascular: Hypertension, High cholesterol Respiratory: None Neuro: None Endocrine/Autoimmune: None GI: Other ARCHEOLOGIST: None : None HEENT: Glaucoma, Chronic hearing loss Psych: None Musculoskeletal: None Derm: None - Past Surgical History Past Surgical History: Yes General: Cholecystectomy, Appendectomy Ortho: Other /ARCHEOLOGIST: 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 HEENT: Cataracts - Present Medications Home Medications: Ambulatory Orders Medication Instructions Recorded Confirmed Atorvastatin Calcium 20 mg PO DAILY 06/24/15 04/16/22 Multivit with Calcium,Iron,Min 1 each PO DAILY 06/24/15 04/16/22 [Multiple Vitamins For Women] Acyclovir 1 cap PO Q4HR 04/16/22 04/16/22 Losartan [Cozaar] 1 tab PO DAILY 04/16/22 04/16/22 Psyllium Husk [Psyllium Fiber] 1 cap PO BID 04/16/22 04/16/22 traZODone [Desyrel] 1 tab PO HS 04/16/22 04/16/22 - Allergies Allergies/Adverse Reactions: Allergies Allergy/AdvReac Type Severity Reaction Status Date / Time hydrocodone Allergy Unknown Verified 04/16/22 05:23 hydroxyzine Allergy Unknown Verified 04/16/22 05:23 iodine Allergy Unknown Verified 04/16/22 05:23 morphine Allergy Unknown Verified 04/16/22 05:23 - Social History Does the pt smoke?: No Smoking Status: Never smoker Does the pt drink ETOH?: No Does the pt have substance abuse?: No - Immunizations Immunizations are current?: Yes - POLST Patient has POLST: No PD ED PE NORMAL - Vitals Vital signs reviewed: Yes - General General: Alert and oriented X 3, No acute distress, Well developed/nourished - Neck Neck: Supple, no meningeal sign - Cardiac Cardiac: RRR, No murmur - Respiratory Respiratory: No respiratory distress, Clear bilaterally - Abdomen Abdomen: Soft, Non distended - Back Back: No CVA TTP - Derm Derm: Normal color, Warm and dry PD ED PE EXPANDED - Abdomen Abdomen: Decreased BS, Tender to palpation (mild/moderate TTP across lower abdomen). No: Rebound, Guarding Results - Vitals Vitals: Oxygen O2 Source Room air - Labs Labs: Laboratory Tests 04/16/22 04/16/22 04/16/22 05:36 05:36 05:36 WBC 12.5 H RBC 3.96 L Hgb 9.3 L Hct 32.1 L MCV 81.1 MCH 23.5 L MCHC 29.0 L RDW 22.0 H Plt Count 390 MPV 9.1 Neut # (Auto) 10.7 H Lymph # (Auto) 0.8 L [place] # (Auto) 0.8 Eos # (Auto) 0.1 Baso # (Auto) 0.1 Absolute Nucleated RBC 0.00 Nucleated RBC % 0.0 Manual Slide Review Indicated WBC Morphology NORMAL APPEARANCE Platelet Estimate NORMAL (130-450,000) Platelet Morphology NORMAL APPEARANCE RBC Morph Micro Appear 1+ HYPOCHROMASIA Sodium 134 L Potassium 4.4 Chloride 99 L Carbon Dioxide 22 Anion Gap 13.0 BUN 13 Creatinine 0.7 Estimated GFR (MDRD) 79 L Glucose 128 H Calcium 9.2 Total Bilirubin 0.6 AST 27 ALT 16 Alkaline Phosphatase 69 Total Protein 6.8 Albumin 3.8 Globulin 3.0 Albumin/Globulin Ratio 1.3 Lipase 30 Urine Color YELLOW Urine Clarity CLEAR Urine pH 5.5 Ur Specific [place] >=1.030 H Urine Protein NEGATIVE Urine Glucose (UA) NEGATIVE Urine Ketones NEGATIVE Urine Occult Blood NEGATIVE Urine Nitrite NEGATIVE Urine Bilirubin NEGATIVE Urine Urobilinogen 0.2 (NORMAL) Ur Leukocyte Esterase NEGATIVE Ur Microscopic Review NOT INDICATED Urine Culture Comments NOT INDICATED - Rads (name of study) CT A/P Radiology: Prelim report reviewed, See rad report PD Medical Decision Making - ED course Complexity details: reviewed results, re-evaluated patient, considered differential, d/w patient ED course: Tests ordered and results reviewed by me: CBC, ER abdominal panel. A CT of the abdomen and pelvis with intravenous and oral contrast is ordered. The results of this study are pending at the end of my shift and thus the care of this patient is turned over to Dr. Patton. Departure - Departure Disposition: 66 [facility] DC/[facility] Clinical Impression: Small bowel obstruction Condition: Stable Discharge Date/Time: 04/16/22 12:39
[2022-04-16] MEDS ORDERED: ONDANSETRON 4 MG/2 ML VIAL IVP STA (05:35)
[2022-04-16] MEDS ORDERED: KETOROLAC 15 MG/ML VIAL IVP STA (05:35)
[2022-04-16 05:41] LABS: BASOPHILS # (AUTO) 0.1 10^3/uL (0.0-0.1); BASOPHILS % (AUTO) 0.4 %; EOSINOPHILS # (AUTO) 0.1 10^3/uL (0.0-0.7); EOSINOPHILS % (AUTO) 0.8 %; HCT - HEMATOCRIT 32.1 % (37.0-47.0); HGB - HEMOGLOBIN 9.3 g/dL (12.0-16.0); LYMPHOCYTES # (AUTO) 0.8 10^3/uL (1.5-3.5); LYMPHOCYTES % (AUTO) 6.3 %; MEAN CORPUSCULAR HEMOGLOBIN 23.5 pg (27.0-31.0); MEAN CORPUSCULAR VOLUME 81.1 fL (81.0-99.0); MEAN PLATELET VOLUME 9.1 fL (7.9-10.8); MONOCYTES # (AUTO) 0.8 10^3/uL (0.0-1.0); MONOCYTES % (AUTO) 6.3 %; NEUTROPHILS # (AUTO) 10.7 10^3/uL (1.5-6.6); NEUTROPHILS % (AUTO) 85.7 %; PLT - PLATELET COUNT 390 10^3/uL (130-450); RED BLOOD COUNT 3.96 10^6/uL (4.20-5.40); WHITE BLOOD COUNT 12.5 x10^3/uL (4.8-10.8)
[2022-04-16 05:42] LABS: SLIDE REVIEW? Indicated
[2022-04-16 05:53] LABS: ALBUMIN 3.8 g/dL (3.2-5.5); ALBUMIN/GLOBULIN RATIO 1.3 (1.0-2.2); BILIRUBIN,TOTAL 0.6 mg/dL (0.2-1.0); CALCIUM 9.2 mg/dL (8.5-10.3); CREATININE 0.7 mg/dL (0.4-1.0); POTASSIUM 4.4 mmol/L (3.5-5.0); TOTAL PROTEIN 6.8 g/dL (6.7-8.2)
[2022-04-16 05:54] LABS: PLATELET ESTIMATE, MANUAL NORMAL (130-450,000) (NORMAL); PLATELET MORPHOLOGY NORMAL APPEARANCE (NORMAL); WBC MORPHOLOGY (MULTIPLE) NORMAL APPEARANCE (NORMAL)
[2022-04-16 06:17] LABS: BILIRUBIN,URINE NEGATIVE (NEGATIVE); GLUCOSE, URINE (UA) NEGATIVE (NEGATIVE); KETONES,URINE (UA) NEGATIVE (NEGATIVE); LEUKOCYTE ESTERASE, URINE NEGATIVE (NEGATIVE); NITRITE,URINE NEGATIVE (NEGATIVE); OCCULT BLOOD,URINE NEGATIVE (NEGATIVE); PH,URINE 5.5 PH (5.0-7.5); PROTEIN,URINE NEGATIVE (NEGATIVE); UROBILINOGEN,URINE 0.2 (NORMAL) E.U./dL (NORMAL)
[2022-04-16 06:20] LABS: CLARITY,URINE CLEAR (CLEAR)
[2022-04-16] MEDS ORDERED: DIATRIZOATE MEGLU/DIATRIZO SOD 30 ML BOTTLE PO ONE ×2 (07:08→10:13)
[2022-04-16] MEDS ORDERED: iohexoL-300 100 ML VIAL ONE (07:08)
[2022-04-16] MEDS ORDERED: iohexoL-300 100 ML VIAL IVP ONE (10:13)
--- NOTE | 2022-04-16 10:47 | CT Report ---
PROCEDURE: CT abdomen pelvis with contrast INDICATIONS: abd. pain, n/v CONTRAST: 100ml Omnipaque 300 TECHNIQUE: After the administration of contrast, 5 mm thick sections acquired from the diaphragms to the sym physis. 5 mm thick coronal and sagittal reformats were acquired. For radiation dose reduction, the following was used: automated exposure control, adjustment of mA and/or kV according to patient size . COMPARISON: 12/13/2016 FINDINGS: Lower thorax: The lung bases are clear. Heart size normal. No hiatal hernia. Liver: Normal in size and attenuation. No contour deformity present. Biliary system: No calcified cholelithiasis or pericholecystic inflammation. No evidence of bile du ct dilatation. Pancreas: Unremarkable without mass or inflammation evident. Spleen: Normal in size and density. Adrenals: Normal morphology and density. Reproductive system: Unremarkable as visualized. Urinary system: Normal renal size and attenuation. No renal calculi, hydronephrosis, or solid mass p resent. Urinary bladder unremarkable. Gastrointestinal system: Right hemicolectomy and ileocolic anastomosis. Advanced diverticulosis noted in the descending and sigmoid colon. No evidence of focal diverticulitis. There is evidence of stasi s with fecalization of the distal small bowel contents just proximal to the anastomosis. Colonic wall thickening at the anastomosis with the completely decompressed distal colon. Distal small bowel is a lso distended measuring up to 2.8 cm in diameter. Perienteric edema noted particularly at image 3/43 Appendix: No findings to suggest acute appendicitis. Peritoneal spaces: No mesenteric or retroperitoneal adenopathy. No free air. No free fluid. Vasculature: Dense aortic and iliac coronary artery vascular calcification present. Musculoskeletal: Normal bone mineralization. No acute fractures. Ventral midline hernia contains fa t without bowel involvement, similar to prior. Multilevel degenerative disc disease and arthropathy i n the lower lumbar spine IMPRESSION: 1. Colonic wall thickening and evidence of fecal stasis at an ileocolic anastomosis, new from the [place] or exam. Small bowel fluid distention with adjacent small bowel edema present as well. Primary consid eration would be colonic neoplasm with stenosis, particularly if there is any history of colon cancer . Consider follow-up PET/CT. Differential would include small bowel enteritis. No evidence of perfora tion or abscess. 2. Advanced colonic diverticulosis without diverticulitis 3. Additional chronic changes as above Reviewed by: Matty Thornton MD on 04/16/2022 9:45 AM [facility] Approved by: Matty Thornton MD on 04/16/2022 9:45 AM [facility] Station ID: [id number]
[2022-04-16] MEDS ORDERED: fentaNYL 100 MCG/2 ML VIAL IVP STA (10:50)
[2022-04-16] MEDS ORDERED: SODIUM CHLORIDE FLUSH 0.9% 10 ML SYRINGE IVP PRN ×2 (11:40→11:42)
[2022-04-16] MEDS ORDERED: ONDANSETRON 4 MG/2 ML VIAL IVP PRN (11:42)
[2022-04-16] MEDS ORDERED: MORPHINE 2 MG/ML CARPUJECT IVP PRN (11:42)
--- NOTE | 2022-04-16 11:51 | HISTORY & PHYSICAL EXAMINATION ---
Chief Complaint - Chief Complaint Chief Complaint: abd pain and cramping since 04/15 23:00 History of Present Illness - Admitted From Admitted From:: home via EMS - History Obtained From Records Reviewed: [facility] History obtained from: Dr. 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 She had a colonoscopy in 2011 which was positive for moderate diverticulosis. She also had 2 small polyps in the lower rectal segment. She underwent a follow-up co lonoscopy with Dr. Soni April 2018. She had moderate diverticulosis at the splenic flexure, descending colon and sigmoid colon. No evidence of recurrent or new malignancy. Retroflexed view showed internal hemorrhoids. This susie lady has also had an appendectomy, cholecystectomy and C sections. Last bowel movement was yesterday. She lost her about 6 months ago. They have been for 67 years. She finds her self depressed. Not wanting to eat. Is too much trouble to make food. She is lost about 15 pounds. She saw her primary care provider for follow-up in March of this year because she was feeling a little short of breath. She was diagnosed with anemia. She had convinced her primary care provider to not do a follow-up colonoscopy. She said that she just was not feeling well and not eating well because of it. Says she convinced her primary care provider that she would take iron, improve her diet, and then she would wait and see. She is also been worked up with pulmonary function studies. She has mild COPD. It does respond to bronchodilators but s he says she has not needed them. There is been no change in cough, phlegm, bowel habits, urinary habits. She is now brought in by EMS at approximately 5 in the morning this morning. Her chief complaint was abdominal pain and cramping that began at 11:00 last night. It is diffuse, cramping. She remembers having diverticulitis and she thinks it feels like that. Some nausea. Her temperature was 37.2. Heart rate 97. Blood pressure 160/66. Respirations 18. 94% on room air. At the time of this dictation and admission the ER provider has yet to document their exam. But there objective data shows a white cell count of 12.5. Hemoglobin 9.3. BUN and creatinine are normal. And CT of the abdomen has a right hemicolectomy and ileocolic anastomosis. She has advanced diverticulosis noted within the descending and sigmoid colon. No diverticulitis. There is evidence of stasis with fecalization of the distal small bowel contents just proximal to the anastomosis. Colonic wall thickening at the anastomosis with the completely decompressed distal colon. Distal small bowel is distended at 2.8 cm. Perienteric edema noted particularly at image 3/43. Primary consideration would be colonic neoplasm with stenosis. Consider a PET/CT. Differential would also include small bowel enteritis. The case was discussed with me as we went over the differential. I discussed this with Dr. Patton the ER provider. She states that she is already called Dr. Kaminski, on-call for general surgery, and he is asked for the patient to be admitted to my service. He has already writing for a bowel prep and plans on taking her to the operating room tomorrow for a colonoscopy. He is also letting us know that he is on vacation after April 17. He does not know if there will be any general surgery coverage after that. History - Past Medical History Cardiovascular: reports: Hypertension, High cholesterol Respiratory: reports: COPD, Pneumonia (July 2021), Other (chronic cough. Reduced lung capacity. CT 03/2019 neg ) Neuro: reports: None Endocrine/Autoimmune: reports: None GI: reports: Other CEMENT FINISHING SUPERVISOR: reports: None, Other () : reports: None HEENT: reports: Glaucoma, Chronic hearing loss Psych: reports: None Musculoskeletal: reports: Osteoarthritis, Other (hammer toes w surgery, then amp of distal toe) Derm: reports: None MRSA Hx?: No - Past Surgical History General: reports: Cholecystectomy (1972), Appendectomy (1945), Bowel surgery, Colonoscopy Ortho: reports: Amputation (distal R 2nd toe for hammertoe), Other (ruptured tendon L foot) /CEMENT FINISHING SUPERVISOR: reports: 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 (1977) HEENT: reports: Cataracts (L eye 07/2015, R eye 07/2015), Tonsil/Adenoidectomy (1942) - Family & Social History Family History Comment/Other: Dad at age 48 of leukemia. Mom in her 90s after living in a senior care for 13 years after a stroke at 80. 1 sister alive and well in [place] and is 2 years younger than her. 2 children. Son is morbidly obese. Daughter has some type of autoimmune arthritis disease Living arrangement: At home Living Situation: Alone Social History Notes: From [place]. Met and her [employer] who took her to [facility], then [facility], then [facility], then [place], then [facility], and then [place]. 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 Smoked [id number] history. No history of alcohol abuse or recreational substance abuse. [place] have [place]. They lived in their own home. 6 months ago. - Substance History Use: Uses substance without health or social issues: NONE Abuse: Recurrent use of substance despite neg consequences: NONE Dependence: Experiences withdrawal or developed tolerances: NONE - POLST Patient has POLST: No POLST Status: Full Code Meds/Allgy - Home Medications Home Medications: Ambulatory Orders Medication Instructions Recorded Confirmed Atorvastatin Calcium 20 mg PO DAILY 06/24/15 04/16/22 Multivit with Calcium,Iron,Min 1 each PO DAILY 06/24/15 04/16/22 [Multiple Vitamins For Women] Acyclovir 1 cap PO Q4HR 04/16/22 04/16/22 Losartan [Cozaar] 1 tab PO DAILY 04/16/22 04/16/22 Psyllium Husk [Psyllium Fiber] 1 cap PO BID 04/16/22 04/16/22 traZODone [Desyrel] 1 tab PO HS 04/16/22 04/16/22 - Allergies Allergies/Adverse Reactions: Allergies Allergy/AdvReac Type Severity Reaction Status Date / Time hydrocodone Allergy Unknown Verified 04/16/22 05:23 hydroxyzine Allergy Unknown Verified 04/16/22 05:23 iodine Allergy Unknown Verified 04/16/22 05:23 morphine Allergy Unknown Verified 04/16/22 05:23 Review of Systems - Constitutional Constitutional: reports: Fatigue, Malaise, Poor appetite - Eyes Eyes: reports: Blurred vision, Vision loss. denies: Pain - Ears, Nose & Throat Ears, Nose & Throat: reports: Hearing loss. denies: Ear pain, Hearing aids, Tinnitus, Vertigo, Nasal pain, Nasal discharge, Nasal obstruction, Nasal congestion, Sore throat, Hoarseness - Cardiovascular Cariovascular: reports: Decr. exercise tolerance. denies: Irregular heart rate, Palpitations, Chest pain, Edema, Syncope, Exertional dyspnea - Respiratory Respiratory: reports: Cough. denies: Sputum production, Wheezing, Snoring, Orthopnea, SOB at rest, SOB with exertion - Gastrointestinal Gastrointestinal: reports: Abdominal pain, Abdominal distention, Change in bowel habits, Nausea, Vomiting, Bloating. denies: Black stools, Bloody stools, Bile emesis, Nathanael blood emesis, Coffee grounds emesis, Reflux/heartburn - Genitourinary Genitourinary: denies: Dysuria, Frequency, Urgency, Hematuria - Musculoskeletal Musculoskeletal: reports: Back pain, Stiffness, Joint pain. denies: Muscle pain, Muscle aches - Integumentary Integumentary: denies: Rash, Pruritis, Lesions, Dryness - Neurological Neurological: denies: General weakness, Focal weakness, Headache, Dizziness, Memory problems, Pre-existing deficit - Psychiatric Psychiatric: reports: Depression. denies: Anxiety, Suicidal, Delusions, Hallucinations, Homicidal - Endocrine Endocrine: denies: Polyuria, Polydypsia, Polyphagia, Intolerance to cold - Hematologic/Lymphatic Hematologic/Lymphatic: reports: Anemia. 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 She has had a bariatric coordinator for several years. But she drives a car, pays her own bills, dresses her self, does groceries, and generally takes care of her self fine. Exam - Vital Signs Reviewed Vital Signs: Yes Vital Signs: Vital Signs x48h Temp Pulse Resp BP Pulse Ox 04/16/22 10:00 75 16 138/80 H 97 04/16/22 08:00 92 18 159/65 H 97 04/16/22 06:51 85 18 131/50 H 94 04/16/22 05:22 87 18 190/76 H 98 04/16/22 05:17 37.2 C 97 18 160/66 H 94 - Physical Exam General Appearance: positive: Alert, Other (Alert elderly female whose good friend and neighbor is in the bedside with her. She says that she would like me to discuss everything in front of her friend.She feels perfectly comfortable right now. No acute distress.) Eyes Bilateral: positive: PERRL, EOMI, Other (Wearing glasses) ENT: positive: Pharynx nml, No signs of dehydration Neck: positive: No JVD. negative: Stiff neck Respiratory: positive: No respiratory distress. negative: Wheezes, Rales, Rhonchi Cardiovascular: positive: Regular rate & rhythm, Systolic murmur. negative: Gallop/S4 Peripheral Pulses: positive: 1+ Abdomen: positive: Non-tender, No organomegaly, Nml bowel sounds, Other (Tympanitic.Moderately distended, domed abdomen. No flatus or BM today). negative: Guarding, Rebound Back: positive: Nml inspection. negative: CVA tenderness (R), CVA tenderness (L) Skin: positive: No rash, Warm, Dry Extremities: positive: Full ROM, No pedal edema Neurologic/Psychiatric: positive: Oriented x3, CN's nml (2-12), Motor nml Conclusion/Plan - Problem List (1) Small bowel obstruction Conclusion/Plan: At this time the differential diagnosis is anastomotic constriction, possible adhesion from previous surgeries, recurrence of old neoplasm, or occurrence of new neoplasm. The case was discussed with general surgery. She has had very good follow-up with regards to colonoscopies and pathology so he doubt that is going to be recurrence of old neoplasm. He thinks that she just may have had anastomotic constriction. This is most likely due to an increase in dietary fiber as she tried to correct the anemia that she has been developing. It is my understanding that he is decided not to do a colonoscopy on or after all. He had not known that she just had a colonoscopy in 2019. So when he had her admitted to my service, he thought he was going to be doing a bowel prep today and colonoscopy tomorrow. This was all discussed with the patient and her advocate at the bedside. Plan: Observation status N.p.o. except for ice chips Wait for flatus to occur and then advance diet Antiemetics and pain medication I warned her that if she has significant emesis, I will have to put an NG tube down. She is not happy about that (2) History of colon cancer Conclusion/Plan: She has had a colon resection, and was stage I from what I understand. She did not require chemotherapy or radiation. She has had several colonoscopy since 1996 with the most recent one being 2019. With that in mind Dr. Kaminski is opting to treat this as just stricture causing bowel obstruction. Stricture being the anastomotic stricture. I will check his CEA with tomorrow's labs. She says that she may see Dr. Soni office in follow-up since that whose who did her colonoscopy last time (3) Iron deficiency anemia Conclusion/Plan: In January 2019 hemoglobin was 13.8. With her visit to her PCP office hemoglobin was 7.6 twice. Today she is 9.3 after starting iron and a good diet. At this time the presumptive diagnosis is inadequate intake of diet and dietary iron. But the differential recurrence of colon cancer still remains. Iron studies were done March 29. Iron was 16, TIBC 554, percent saturation 3, transferrin 396. Ferritin 4.1. B12 was normal at 210, and folate was greater than 49. TSH was 3.93. Plan: Possible iron infusion tomorrow CEA tomorrow Qualifiers: Iron deficiency anemia type: inadequate dietary iron intake Qualified Code(s): D50.8 - Other iron deficiency anemias (4) Leukocytosis Conclusion/Plan: In association with a small bowel obstruction but no peritoneal findings on physical exam. Lung exam is normal. And there is no UTI symptoms. At this time I think she may just have demargination. Plan: Continue to monitor daily and watch for signs and symptoms of infection. Blood cultures if she gets a fever. Qualifiers: Leukocytosis type: unspecified Qualified Code(s): D72.829 - Elevated white blood cell count, unspecified (5) Unintentional weight loss Conclusion/Plan: Differential diagnosis is neoplasm, grief reaction. Plan: Nutrition consult. When she is able to eat, after this bowel obstruction passes, we may concentrate on improving her diet via a low fiber diet - Lab Results Lab results reviewed: Yes Fish Bones: 04/16/22 05:36 04/16/22 05:36 - Diagnostic Imaging Results Diagnostic Imaging Results: positive: Final report reviewed Diagnostic Imaging Results Comments: CT right hemicolectomy and ileocolic anastomosis. She has advanced diverticulosis noted within the descending and sigmoid colon. No diverticulitis. There is evidence of stasis with fecalization of the distal small bowel contents just proximal to the anastomosis. Colonic wall thickening at the anastomosis with the completely decompressed distal colon. Distal small bowel is distended at 2.8 cm. Perienteric edema noted particularly at image 3/43. Primary consideration would be colonic neoplasm with stenosis. Consider a PET/CT. Differential would also include small bowel enteritis. - EKG Results EKG Interpreted Independently: No Core Measures - Anticipated LOS I expect patient to be DC'd or transferred within 96 hours.: Yes - DVT/VTE - Prophylaxis VTE/DVT Device ordered at admit?: Yes
--- NOTE | 2022-04-16 12:06 | ED Physician Documentation ---
ED Addendum - Addendum Addendum: 04/16/22 11:27 Patient received in signout from Dr. Roman to follow-up on CT scan.She has mild upper abdominal tenderness. She has an allergy to morphine but has tolerated fentanyl in the past and she was agreeable to a small dose of fentanyl. I did personally review the images and CT read is as follows. IMPRESSION: 1. Colonic wall thickening and evidence of fecal stasis at an ileocolic anastomosis, new from the prior exam. Small bowel fluid distention with adjacent small bowel edema present as well. Primary consideration would be colonic neoplasm with stenosis, particularly if there is any history of colon cancer. Consider follow-up PET/CT. Differential would include small bowel enteritis. No evidence of perforation or abscess. I discussed the case with Dr. Kaminski. He requests medicine to admit the patient. He states that she can be started on a clear liquid diet. We can hold off on NG tube for now. He recommends a bowel prep for colonoscopy. He will be starting vacation after today and that a locum surgeon will be starting on . I also spoke with Dr. White who agrees to admit the patient for further evaluation. She is aware that Dr. Kaminski can consult today but will be off service starting tomorrow. Departure - Departure Disposition: [facility] DC/[place] Clinical Impression: Small bowel obstruction Condition: Stable Discharge Date/Time: 04/16/22 12:39
--- NOTE | 2022-04-16 13:19 | PHARMACY PROGRESS NOTE ---
- Best Possible Medication History Admit Date and Time: 04/16/22 1140 Processed by: Pharmacy Medication History completed: Yes Patient Interview: Completed Secondary Source(s): Written medication list, Pharmacy records As the person ultimately responsible for medication therapy, providers are able to order a medication from an existing home medication list in [facility] via the "Reconcile Routine" prior to Confirmation of that medication by direct support worker. Such practice is discouraged except when the physician, in their clinical judgment, deems that a medical need exists for a medication without regard to previous use.
[2022-04-16] MEDS: SODIUM CHLORIDE 0.9% 1,000 ML IV SCH (13:29)
[2022-04-16] MEDS: ENOXAPARIN 40 MG/0.4 ML SYRINGE SUBQ SCH (14:26)
[2022-04-16] MEDS ORDERED: MORPHINE SOL 10 MG/0.5 ML ORAL SYRINGE PO PRN ×2 (14:47→14:48)
[2022-04-16] MEDS ORDERED: HYDROmorphone 1 MG/ML CARPUJECT IVP PRN (14:59)
[2022-04-16] MEDS: HYDROmorphone 0.5 MG/0.5 ML SYRINGE IVP PRN (15:06)
--- NOTE | 2022-04-16 17:49 | CONSULTATION NOTE ---
Referring Provider Consult Date: 04/16/22 Chief Complaint - Chief Complaint Chief Complaint: abdominal pain, nausea and vomiting today History of Present Illness - History Obtained From Records Reviewed: yes History obtained from: pt Exam Limitations: none - History of Present Illness HPI Comment/Other: history right colectomy 1996 for colon cancer. She had a colonoscopy 04/2018 showing an anastomosis free of cancer. no colon polyps. she has a low iron count and she has been eating more vegetables and fruit. over the last 2 days she has had an orange, green beans, and a salad. History - Past Medical History Cardiovascular: reports: Hypertension, High cholesterol Respiratory: reports: COPD, Pneumonia (July 2021), Other (chronic cough. Reduced lung capacity. CT 03/2019 neg ) Neuro: reports: None Endocrine/Autoimmune: reports: None GI: reports: Other ERECTION SHOP SUPERVISOR: reports: None, Other () : reports: None HEENT: reports: Glaucoma, Chronic hearing loss Psych: reports: None Musculoskeletal: reports: Osteoarthritis, Other (hammer toes w surgery, then amp of distal toe) Derm: reports: None MRSA Hx?: No - Past Surgical History General: reports: Cholecystectomy (1972), Appendectomy (1945), Bowel surgery, Colonoscopy Ortho: reports: Amputation (distal R 2nd toe for hammertoe), Other (ruptured tendon L foot) /ERECTION SHOP SUPERVISOR: reports: 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 (1977) HEENT: reports: Cataracts (L eye 07/2015, R eye 07/2015), Tonsil/Adenoidectomy (1942) - Family & Social History Family History Comment/Other: Dad at age 48 of leukemia. Mom in her 90s after living in a custodial for 13 years after a stroke at 80. 1 sister alive and well in [place] and is 2 years younger than her. 2 children. Son is morbidly obese. Daughter has some type of autoimmune arthritis disease Living arrangement: At home Living Situation: Alone Social History Notes: From [place]. Met and her [employer] who took her to [facility], then [facility], then [facility], then [place], then [facility], and then [place]. 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 Smoked [id number] history. No history of alcohol abuse or recreational substance abuse. [place] have [place] it here. They lived in their own home. 6 months ago. - Substance History Use: Uses substance without health or social issues: NONE Abuse: Recurrent use of substance despite neg consequences: NONE Dependence: Experiences withdrawal or developed tolerances: NONE - POLST Patient has POLST: No POLST Status: Full Code Meds/Allgy - Home Medications Home Medications: Ambulatory Orders Medication Instructions Recorded Confirmed Atorvastatin Calcium 20 mg PO DAILY 06/24/15 04/16/22 Multivit with Calcium,Iron,Min 1 each PO DAILY 06/24/15 04/16/22 [Multiple Vitamins For Women] Acyclovir 1 cap PO Q4HR 04/16/22 04/16/22 Losartan [Cozaar] 1 tab PO DAILY 04/16/22 04/16/22 Psyllium Husk [Psyllium Fiber] 1 cap PO BID 04/16/22 04/16/22 traZODone [Desyrel] 1 tab PO HS 04/16/22 04/16/22 - Allergies Allergies/Adverse Reactions: Allergies Allergy/AdvReac Type Severity Reaction Status Date / Time hydrocodone Allergy Unknown Verified 04/16/22 05:23 hydroxyzine Allergy Unknown Verified 04/16/22 05:23 iodine Allergy Unknown Verified 04/16/22 05:23 morphine Allergy Unknown Verified 04/16/22 05:23 Review of Systems - Other Findings Other Findings: 10 pt ros as above otherwise unremarkable Exam - Vital Signs Reviewed Vital Signs: Yes Vital Signs: Vital Signs x48h Temp Pulse Pulse Resp BP BP Pulse Ox 04/16/22 16:00 36.8 C 103 H 20 161/64 H 95 04/16/22 12:28 36.6 C 89 18 172/67 H 98 04/16/22 12:00 93 18 162/65 H 96 04/16/22 10:00 75 16 138/80 H 97 - Physical Exam General Appearance: positive: No acute distress, Alert, Other (minimal pain and nausea at this time) Respiratory: positive: No respiratory distress Abdomen: positive: Non-tender Neurologic/Psychiatric: positive: Oriented x3 Conclusion/Plan - Lab Results Lab results reviewed: Yes Fish Bones: 04/16/22 05:36 04/16/22 05:36 - Other Other Results/Comments: she has a tight colon to small bowel anastomosis as a cause for her small bowel obstruction. ct scan is reviewed. risk of recurrent colon cancer is very small. she is up to date on colon cancer screening. given she had a colonoscopy 04/2018 and anastomosis was clearly seen I do not believe she needs another colonoscopy or that it would private branch exchange installer. she should improve with medical management; however, she may always need to be careful with a large volume of fruits and vegetables. this is discussed recommend sips, ice chips until pain free and no nausea. if the pain and nausea resolves as anticipated recommend clears ad anthony and home to slowly advance her diet at home. if she is not improving plan anastomosis revision this hospitalization. if she improves without surgery recommend surgery office follow up.
[2022-04-16] MEDS: SODIUM CHLORIDE FLUSH 0.9% 10 ML SYRINGE IVP SCH ×2 (18:45→18:46)
[2022-04-17] MEDS: SODIUM CHLORIDE FLUSH 0.9% 10 ML SYRINGE IVP SCH ×5 (01:43→23:28)
[2022-04-17] MEDS: SODIUM CHLORIDE 0.9% 1,000 ML IV SCH ×3 (01:43→18:32)
[2022-04-17] MEDS: ONDANSETRON ODT 4 MG TABLET TL PRN ×2 (01:44→09:06)
[2022-04-17 05:48] LABS: BASOPHILS % (AUTO) 0.2 %; EOSINOPHILS # (AUTO) 0.3 10^3/uL (0.0-0.7); EOSINOPHILS % (AUTO) 2.6 %; HCT - HEMATOCRIT 30.6 % (37.0-47.0); HGB - HEMOGLOBIN 8.6 g/dL (12.0-16.0); LYMPHOCYTES # (AUTO) 1.1 10^3/uL (1.5-3.5); LYMPHOCYTES % (AUTO) 8.9 %; MEAN CORPUSCULAR HEMOGLOBIN 23.5 pg (27.0-31.0); MEAN CORPUSCULAR HGB CONC 28.1 g/dL (32.0-36.0); MEAN CORPUSCULAR VOLUME 83.6 fL (81.0-99.0); MEAN PLATELET VOLUME 9.6 fL (7.9-10.8); MONOCYTES # (AUTO) 1.1 10^3/uL (0.0-1.0); MONOCYTES % (AUTO) 9.2 %; NEUTROPHILS # (AUTO) 9.7 10^3/uL (1.5-6.6); NEUTROPHILS % (AUTO) 78.8 %; PLT - PLATELET COUNT 383 10^3/uL (130-450); RED BLOOD COUNT 3.66 10^6/uL (4.20-5.40); RED CELL DISTRIBUTION WIDTH 23.2 % (12.0-15.0); WHITE BLOOD COUNT 12.3 x10^3/uL (4.8-10.8)
[2022-04-17 05:54] LABS: SLIDE REVIEW? Indicated
[2022-04-17 05:58] LABS: CALCIUM 8.2 mg/dL (8.5-10.3); CREATININE 0.9 mg/dL (0.4-1.0)
[2022-04-17 06:04] LABS: PLATELET ESTIMATE, MANUAL NORMAL (130-450,000) (NORMAL); PLATELET MORPHOLOGY NORMAL APPEARANCE (NORMAL); WBC MORPHOLOGY (MULTIPLE) NORMAL APPEARANCE (NORMAL)
[2022-04-17] MEDS: ENOXAPARIN 40 MG/0.4 ML SYRINGE SUBQ SCH (08:18)
[2022-04-17] MEDS ORDERED: IRON DEXTRAN 1,500 MG in SODIUM CHLORIDE 0.9% 500 ML IV ONE (08:35)
[2022-04-17] MEDS ORDERED: IRON DEXTRAN 1,000 MG in SODIUM CHLORIDE 0.9% 500 ML IV ONE (10:00)
[2022-04-17] MEDS: HYDROmorphone 0.5 MG/0.5 ML SYRINGE IVP PRN ×2 (10:26→16:18)
--- NOTE | 2022-04-17 10:32 | PROVIDER PROGRESS NOTE ---
Subjective - Subjective Pt reports feeling: Improved (several small liquid bms over night. pain improved. some cramping.) Objective - Vital Signs/Intake & Output Reviewed Vital Signs: Yes Vital Signs: Vital Signs x48h Temp Pulse Resp BP BP Pulse Ox 04/17/22 08:00 36.7 C 92 18 146/54 H 95 04/17/22 04:56 36.5 C 103 H 20 164/58 H 98 Intake & Output: Intake & Output 04/14/22 04/15/22 04/16/22 04/17/22 23:59 23:59 23:59 23:59 Intake Total 0 1000 Output Total 350 Balance -350 1000 - Objective General Appearance: positive: No acute distress, Alert Eyes Bilateral: positive: PERRL, EOMI Respiratory: positive: No respiratory distress Abdomen: positive: Non-tender, No distention Neurologic/Psychiatric: positive: Oriented x3 - Lab Results Fish Bones: 04/17/22 05:20 04/17/22 05:20 Other Labs: Lab Results x24hrs 04/17/22 04/17/22 04/17/22 Range/Units 08:56 05:20 05:20 WBC 12.3 H (4.8-10.8) x10^3/uL RBC 3.66 L (4.20-5.40) 10^6/uL Hgb 8.6 L (12.0-16.0) g/dL Hct 30.6 L (37.0-47.0) % MCV 83.6 (81.0-99.0) fL MCH 23.5 L (27.0-31.0) pg MCHC 28.1 L (32.0-36.0) g/dL RDW 23.2 H (12.0-15.0) % Plt Count 383 (130-450) 10^3/uL MPV 9.6 (7.9-10.8) fL Neut # (Auto) 9.7 H (1.5-6.6) 10^3/uL Lymph # (Auto) 1.1 L (1.5-3.5) 10^3/uL [place] # (Auto) 1.1 H (0.0-1.0) 10^3/uL Eos # (Auto) 0.3 (0.0-0.7) 10^3/uL Baso # (Auto) 0.0 (0.0-0.1) 10^3/uL Absolute Nucleated RBC 0.00 x10^3/uL Nucleated RBC % 0.0 /100WBC Manual Slide Review Indicated WBC Morphology NORMAL APPEARANCE (NORMAL) Platelet Estimate NORMAL (130-450,000) (NORMAL) Platelet Morphology NORMAL APPEARANCE (NORMAL) RBC Morph Micro Appear 1+ HYPOCHROMASIA (NORMAL) Sodium 136 (135-145) mmol/L Potassium 4.0 (3.5-5.0) mmol/L Chloride 106 (101-111) mmol/L Carbon Dioxide 21 (21-32) mmol/L Anion Gap 9.0 (6-13) BUN 16 (6-20) mg/dL Creatinine 0.9 (0.4-1.0) mg/dL Estimated GFR (MDRD) 59 L (>89) Glucose 91 (70-100) mg/dL Calcium 8.2 L (8.5-10.3) mg/dL Carcinoembryonic Ag 1.9 ng/mL SARS-CoV-2 (PCR) 04/16/22 Range/Units 12:06 WBC (4.8-10.8) x10^3/uL RBC (4.20-5.40) 10^6/uL Hgb (12.0-16.0) g/dL Hct (37.0-47.0) % MCV (81.0-99.0) fL MCH (27.0-31.0) pg MCHC (32.0-36.0) g/dL RDW (12.0-15.0) % Plt Count (130-450) 10^3/uL MPV (7.9-10.8) fL Neut # (Auto) (1.5-6.6) 10^3/uL Lymph # (Auto) (1.5-3.5) 10^3/uL [place] # (Auto) (0.0-1.0) 10^3/uL Eos # (Auto) (0.0-0.7) 10^3/uL Baso # (Auto) (0.0-0.1) 10^3/uL Absolute Nucleated RBC x10^3/uL Nucleated RBC % /100WBC Manual Slide Review WBC Morphology (NORMAL) Platelet Estimate (NORMAL) Platelet Morphology (NORMAL) RBC Morph Micro Appear (NORMAL) Sodium (135-145) mmol/L Potassium (3.5-5.0) mmol/L Chloride (101-111) mmol/L Carbon Dioxide (21-32) mmol/L Anion Gap (6-13) BUN (6-20) mg/dL Creatinine (0.4-1.0) mg/dL Estimated GFR (MDRD) (>89) Glucose (70-100) mg/dL Calcium (8.5-10.3) mg/dL Carcinoembryonic Ag ng/mL SARS-CoV-2 (PCR) NOT DETECTED Assessment/Plan - Problem List (1) Small bowel obstruction Impression: partial sbo at colon anastomosis. she had a colonoscopy 3 years ago. no cancer. in retrospect she has had occasional cramping pain for years. much worse few days ago. she is improving. agree with clears. if she tolerates clears well she may go home, slowly advance diet, avoid large amounts raw fruits and vegetables and follow up in the surgery office. she understands if she cannot tolerate clears well she will need surgery this hospitalization. if she tolerates clears well; however, continues to have episodes of cramping pain she should consider elective revision of her anastomosis
--- NOTE | 2022-04-17 13:35 | PROVIDER PROGRESS NOTE ---
Subjective - Prog Note Date Prog Note Date: 04/17/22 Prog Note Time: 13:32 - Subjective Subjective: Distention is gone. Has had 2 bowel movements, much flatus. She is delighted. No fever or chills overnight. Current Medications - Current Medications Current Medications: Active Medications Enoxaparin Sodium (Enoxaparin 40 Mg/0.4 Ml Syringe) 40 mg SUBQ DAILY [facility] Last Admin: 04/17/22 08:18 Dose: 40 mg Hydromorphone HCl (Hydromorphone 0.5 Mg/0.5 Ml Syringe) 0.5 mg IVP Q2H PRN PRN Reason: pain 4-8 Last Admin: 04/17/22 10:26 Dose: 0.5 mg Hydromorphone HCl (Hydromorphone 1 Mg/Ml Carpuject) 1 mg IVP Q2HR PRN PRN Reason: pain 9-10 Sodium Chloride (Normal Saline 0.9%) 1,000 mls @ 85 mls/hr IV .[id number] [facility] Last Admin: 04/17/22 12:27 Dose: Not Given Iron Dextran 1,000 mg/ Sodium (Chloride) 520 mls @ 132.5 mls/hr IV ONCE ONE Stop: 04/17/22 13:55 Last Admin: 04/17/22 10:45 Dose: 132.5 mls/hr Ondansetron HCl (Ondansetron Odt 4 Mg Tablet) 4 mg TL Q6HR PRN PRN Reason: Nausea / Vomiting Last Admin: 04/17/22 09:06 Dose: 4 mg Ondansetron HCl (Ondansetron 4 Mg/2 Ml Vial) 4 mg IVP Q6HR PRN PRN Reason: Nausea / Vomiting Last Admin: 04/16/22 13:29 Dose: 4 mg Sodium Chloride (Sodium Chloride Flush 0.9% 10 Ml Syringe) 10 ml IVP PRN PRN PRN Reason: NEEDED PER PROVIDER ORDERS Sodium Chloride (Sodium Chloride Flush 0.9% 10 Ml Syringe) 10 ml IVP 0100,0900,1700 [facility] Last Admin: 04/17/22 08:21 Dose: Not Given Atorvastatin Calcium 20 mg PO DAILY 06/24/15 Multivit with Calcium,Iron,Min [Multiple Vitamins For Women] 1 each PO DAILY 06/24/15 Acyclovir 1 cap PO Q4HR 04/16/22 Losartan [Cozaar] 1 tab PO DAILY 04/16/22 Psyllium Husk [Psyllium Fiber] 1 cap PO BID 04/16/22 traZODone [Desyrel] 1 tab PO HS 04/16/22 Objective - Vital Signs/Intake & Output Reviewed Vital Signs: Yes Vital Signs: Vital Signs x48h Temp Pulse Resp BP Pulse Ox 04/17/22 08:00 36.7 C 92 18 146/54 H 95 Intake & Output: Intake & Output 04/14/22 04/15/22 04/16/22 04/17/22 23:59 23:59 23:59 23:59 Intake Total 0 1767.833 Output Total 350 Balance -350 1767.833 - Objective General Appearance: positive: No acute distress, Alert Eyes Bilateral: positive: PERRL, EOMI ENT: positive: No signs of dehydration Neck: positive: No JVD Respiratory: positive: No respiratory distress. negative: Wheezes, Rales, Rhonchi Cardiovascular: positive: Regular rate & rhythm, Systolic murmur Abdomen: positive: Non-tender, No organomegaly, Nml bowel sounds, No distention Skin: positive: Warm, Dry Extremities: positive: Full ROM, No pedal edema Neurologic/Psychiatric: positive: Oriented x3, CN's nml (2-12), Motor nml - Lab Results Fish Bones: 04/17/22 05:20 04/17/22 05:20 Other Labs: Lab Results x24hrs 04/17/22 04/17/22 04/17/22 Range/Units 08:56 05:20 05:20 WBC 12.3 H (4.8-10.8) x10^3/uL RBC 3.66 L (4.20-5.40) 10^6/uL Hgb 8.6 L (12.0-16.0) g/dL Hct 30.6 L (37.0-47.0) % MCV 83.6 (81.0-99.0) fL MCH 23.5 L (27.0-31.0) pg MCHC 28.1 L (32.0-36.0) g/dL RDW 23.2 H (12.0-15.0) % Plt Count 383 (130-450) 10^3/uL MPV 9.6 (7.9-10.8) fL Neut # (Auto) 9.7 H (1.5-6.6) 10^3/uL Lymph # (Auto) 1.1 L (1.5-3.5) 10^3/uL [place] # (Auto) 1.1 H (0.0-1.0) 10^3/uL Eos # (Auto) 0.3 (0.0-0.7) 10^3/uL Baso # (Auto) 0.0 (0.0-0.1) 10^3/uL Absolute Nucleated RBC 0.00 x10^3/uL Nucleated RBC % 0.0 /100WBC Manual Slide Review Indicated WBC Morphology NORMAL APPEARANCE (NORMAL) Platelet Estimate NORMAL (130-450,000) (NORMAL) Platelet Morphology NORMAL APPEARANCE (NORMAL) RBC Morph Micro Appear 1+ HYPOCHROMASIA (NORMAL) Sodium 136 (135-145) mmol/L Potassium 4.0 (3.5-5.0) mmol/L Chloride 106 (101-111) mmol/L Carbon Dioxide 21 (21-32) mmol/L Anion Gap 9.0 (6-13) BUN 16 (6-20) mg/dL Creatinine 0.9 (0.4-1.0) mg/dL Estimated GFR (MDRD) 59 L (>89) Glucose 91 (70-100) mg/dL Calcium 8.2 L (8.5-10.3) mg/dL Carcinoembryonic Ag 1.9 ng/mL ABX Reporting Has patient been on IV antibiotics over the past 48 hours?: No Assessment/Plan - Problem List (1) Small bowel obstruction Impression: At this time the differential diagnosis is anastomotic constriction, possible adhesion from previous surgeries, recurrence of old neoplasm, or occurrence of new neoplasm. The case was discussed with general surgery on admit. She has had very good follow-up with regards to colonoscopies and pathology so he doubts that is going to be recurrence of old neoplasm. He thinks that she just may have had anastomotic constriction. This is most likely due to an increase in dietary fiber as she tried to correct the anemia that she has been developing. It is my understanding that he is decided not to do a colonoscopy after all. He had not known that she just had a colonoscopy in 2019. So when he had her admitted to my service, he thought he was going to be doing a bowel prep on the day of admission and scope today. She has now had several bowel movements, passed gas. Feels much better. Case was again discussed with general surgery today. He thought that there would be no coverage for general surgery on April 18 or but he tells me that there is a sharemilker working. Plan: Observation status To be changed to inpatient status Advance diet to clear liquids today. If she tolerates this well, we will then advance to a soft low residue diet. If she tolerates low residue diet, discharge at that time to home. Antiemetics and pain medication Nutrition service consult for low residue diet. She is going to need to do this when she gets home. 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 At that time it can be discussed with her she is a candidate for stricture dilation, or resection. (2) History of colon cancer Conclusion/Plan: She has had a colon resection, and was stage I from what I understand. She did not require chemotherapy or radiation. She has had several colonoscopy since 1996 with the most recent one being 2019. With that in mind Dr. Kaminski is opting to treat this as just stricture causing bowel obstruction. Stricture being the anastomotic stricture. CEA is 1.9. I have asked her to see the general surgery office in follow-up. She says that she may see Dr. Soni office in follow-up since that whose who did her colonoscopy last time (3) Iron deficiency anemia Conclusion/Plan: In January 2019 hemoglobin was 13.8. With her visit to her PCP office hemoglobin was 7.6 twice. Today she is 9.3 after starting iron and a good diet. At this time the presumptive diagnosis is inadequate intake of diet and dietary iron. But the differential recurrence of colon cancer still remains. Iron studies were done March 29. Iron was 16, TIBC 554, percent saturation 3, transferrin 396. Ferritin 4.1. B12 was normal at 210, and folate was greater than 49. TSH was 3.93. Plan: Iron infusion today Qualifiers: Iron deficiency anemia type: inadequate dietary iron intake Qualified Code(s): D50.8 - Other iron deficiency anemias (4) Leukocytosis Conclusion/Plan: In association with a small bowel obstruction but no peritoneal findings on physical exam. Lung exam is normal. And there is no UTI symptoms. At this time I think she may just have demargination. It is still high today. No change from yesterday. Plan: Continue to monitor daily and watch for signs and symptoms of infection. Blood cultures if she gets a fever. Qualifiers: Leukocytosis type: unspecified Qualified Code(s): D72.829 - Elevated white blood cell count, unspecified (5) Unintentional weight loss Conclusion/Plan: Differential diagnosis is neoplasm, grief reaction. CEA is low. Bowel obstruction has resolved. Plan: Nutrition consult Ordered for low residue diet Follow-up with surgeon for endoscopy and or possible surgery Consider SSRI or counseling if this is due to grief reaction
[2022-04-18] MEDS: HYDROmorphone 0.5 MG/0.5 ML SYRINGE IVP PRN (04:26)
[2022-04-18] MEDS: SODIUM CHLORIDE FLUSH 0.9% 10 ML SYRINGE IVP SCH ×3 (04:26→16:50)
[2022-04-18 05:47] LABS: BASOPHILS % (AUTO) 0.2 %; EOSINOPHILS # (AUTO) 0.3 10^3/uL (0.0-0.7); EOSINOPHILS % (AUTO) 2.7 %; HCT - HEMATOCRIT 29.4 % (37.0-47.0); HGB - HEMOGLOBIN 8.3 g/dL (12.0-16.0); LYMPHOCYTES # (AUTO) 0.7 10^3/uL (1.5-3.5); MEAN CORPUSCULAR HEMOGLOBIN 23.9 pg (27.0-31.0); MEAN CORPUSCULAR HGB CONC 28.2 g/dL (32.0-36.0); MEAN CORPUSCULAR VOLUME 84.5 fL (81.0-99.0); MEAN PLATELET VOLUME 9.4 fL (7.9-10.8); MONOCYTES # (AUTO) 1.1 10^3/uL (0.0-1.0); MONOCYTES % (AUTO) 9.8 %; NEUTROPHILS # (AUTO) 8.8 10^3/uL (1.5-6.6); PLT - PLATELET COUNT 330 10^3/uL (130-450); RED BLOOD COUNT 3.48 10^6/uL (4.20-5.40); RED CELL DISTRIBUTION WIDTH 23.1 % (12.0-15.0); WHITE BLOOD COUNT 10.9 x10^3/uL (4.8-10.8)
[2022-04-18 05:52] LABS: SLIDE REVIEW? Indicated
[2022-04-18 05:56] LABS: CREATININE 0.7 mg/dL (0.4-1.0)
[2022-04-18 06:08] LABS: PLATELET ESTIMATE, MANUAL NORMAL (130-450,000) (NORMAL); PLATELET MORPHOLOGY NORMAL APPEARANCE (NORMAL); WBC MORPHOLOGY (MULTIPLE) NORMAL APPEARANCE (NORMAL)
[2022-04-18] MEDS: SODIUM CHLORIDE 0.9% 1,000 ML IV SCH (06:48)
--- NOTE | 2022-04-18 07:50 | Discharge Plan ---
Discharge Plan Problem Reviewed?: Yes Disposition: Home, Self Care Condition: Stable Prescriptions: Ferrous Gluconate 324 mg PO DAILY #60 tablet Diet: Regular (low residue) Activity Restrictions: No Restrictions Shower Restrictions: No Driving Restrictions: No Instruction Topics: Diet Low Residue Health Concerns: You presented as nausea, vomiting, abdominal cramps. You also had a 15 pound weight loss over the last few months due to grieving from the loss of your . You had seen your doctor about this in March and you had iron deficiency anemia. You promised her that you would do better with your diet and had started taking iron, as well as increasing fiber in your diet. This is in context of having a previous bowel resection for colon cancer approximately 1996. The CAT scan in the emergency room showed you to have a bowel obstruction. There is narrowing and stricture/scarring where your bowel resection cut out your cancer and was brought together again. We were worried that we would not have to do a colonoscopy and surgery, but after keeping you on fed. Giving you IV fluids, IV pain medicines, and IV nausea medicines your bowel obstruction resolved on its own. Your diet has been advanced. We think that the increase in fiber in your diet is was caused the problem. However you still need to have a work-up and to follow-up with general surgery. Plan of Treatment: 1. Please see the general surgeon of your choice for follow-up colonoscopy and opinion. Dr. Kaminski is the surgeon that saw you in the hospital. You have previously seen Dr. Dex Soni. 2. Please stop the fiber in your diet. And research what we call low fiber or low residue diet. Right now that is what you should focus on eating. 3. We gave you a single iron infusion to help you with your anemia. A normal amount of blood is about 12 g of hemoglobin. You are admitted at 9.3 g of hemoglobin. It takes about 10 days to build 1 g of blood once you start taking iron. Care Goals: To have resolution regarding your stricture. Is it cancer or is it just simple scar tissue? From her personal perspective, you have lots of plans to do. With the sad loss of your you have a lot of legality and paperwork to get through. And you and your children will sit down and discuss what your future plans are and whether you plan on staying in your own home, moving to an assisted living facility, or moving near them or with them. Assessment: Patient is alert, oriented, still capable of taking care of her self and completing her activities of daily living No Smoking: If you smoke, Please STOP! Call for help. Follow-up with: Dex Soni MD [Provider Admit Priv/Credential] - Mariel Ferguson MD [Provider Admit Priv/Credential] -
--- NOTE | 2022-04-18 09:35 | XRAY Report ---
PROCEDURE: Abdomen 1 View X-Ray INDICATIONS: resolved sbo but liquid stool TECHNIQUE: One view of the abdomen acquired. COMPARISON: CT of abdomen and pelvis dated 04/16/2022 FINDINGS: Surgical changes and devices: Surgical clips are noted in right side of abdomen.. Bowel: A few air distended bowel loops are noted throughout abdomen with air seen extending to sigmoi d colon and rectum. No gross pneumoperitoneum. Soft tissues: No suspicious abdominal calcifications. Visualized solid organ contours appear normal in size. Bones: No suspicious bony lesions. IMPRESSION: A few mildly air distended bowel loops seen throughout abdomen extending to rectum suggestive of mild ileus. No gross free air. Reviewed by: Varinder Chen MD on 04/18/2022 9:33 AM PST Approved by: Varinder Chen MD on 04/18/2022 9:33 AM PST Station ID: [id number]
[2022-04-18] MEDS: ENOXAPARIN 40 MG/0.4 ML SYRINGE SUBQ SCH (09:55)
[2022-04-18 16:33] VITALS: BP 146/64
--- NOTE | 2022-04-18 17:18 | DISCHARGE SUMMARY ---
Discharge Summary Admit Date: 04/16/22 Discharge Date: 04/18/22 Discharging Provider: Thania White MD Primary Care Provider: MD Jorge Code Status: Do Not Attempt Resuscitation Condition at Discharge: Stable Discharge Disposition: 01 Home, Self Care - DIAGNOSES Discharge Diagnoses with Status of Each Condition: 1. Small bowel obstruction secondary to #2 2. 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 History of colon cancer with resection 4. Iron deficiency anemia 5. Unintentional weight loss 6. Leukocytosis 7. 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 She had a colonoscopy in 2011 which was positive for moderate diverticulosis. She also had 2 small polyps in the lower rectal segment. She underwent a follow-up colonoscopy with Dr. Soni April 2018. She had moderate diverticulosis at the splenic flexure, descending colon and sigmoid colon. No evidence of recurrent or new malignancy. Retroflexed view showed internal hemorrhoids. This susie lady has also had an appendectomy, cholecystectomy and C sections. Last bowel movement was yesterday. She lost her about 6 months ago. They have been for 67 years. She finds her self depressed. Not wanting to eat. Is too much trouble to make food. She is lost about 15 pounds. She saw her primary care provider for follow-up in March of this year because she was feeling a little short of breath. She was diagnosed with anemia. She had convinced her primary care provider to not do a follow-up colonoscopy. She said that she just was not feeling well and not eating well because of it. Says she convinced her primary care provider that she would take iron, improve her diet, and then she would wait and see. She is also been worked up with pulmonary fu nction studies. She has mild COPD. It does respond to bronchodilators but she says she has not needed them. There is been no change in cough, phlegm, bowel habits, urinary habits. She is now brought in by EMS at approximately 5 in the morning this morning. Her chief complaint was abdominal pain and cramping that began at 11:00 last night. It is diffuse, cramping. She remembers having diverticulitis and she thinks it feels like that. Some nausea. Her temperature was 37.2. Heart rate 97. Blood pressure 160/66. Respirations 18. 94% on room air. At the time of this dictation and admission the ER provider has yet to document their exam. But there objective data shows a white cell count of 12.5. Hemoglobin 9.3. BUN and creatinine are normal. And CT of the abdomen has a right hemicolectomy and ileocolic anastomosis. She has advanced diverticulosis noted within the descending and sigmoid colon. No diverticulitis. There is evidence of stasis with fecalization of the distal small bowel contents just proximal to the anastomosis. Colonic wall thickening at the anastomosis with the completely decompressed distal colon. Distal small bowel is distended at 2.8 cm. Perienteric edema noted particularly at image 3/43. Primary consideration would be colonic neoplasm with stenosis. Consider a PET/CT. Differential would also include small bowel enteritis. The case was discussed with me as we went over the differential. I discussed this with Dr. Patton the ER provider. She states that she is already called Dr. Kaminski, on-call for general surgery, and he is asked for the patient to be admitted to my service. He has already writing for a bowel prep and plans on ta andrew her to the operating room tomorrow for a colonoscopy. He is also letting us know that he is on vacation after April 17. He does not know if there will be any general surgery coverage after that. History - Past Medical History Cardiovascular: reports: Hypertension, High cholesterol Respiratory: reports: COPD, Pneumonia (July 2021), Other (chronic cough. Reduced lung capacity. CT 03/2019 neg ) Neuro: reports: None Endocrine/Autoimmune: reports: None GI: reports: Other ACCOUNTANT BUDGET: reports: None, Other () : reports: None HEENT: reports: Glaucoma, Chronic hearing loss Psych: reports: None Musculoskeletal: reports: Osteoarthritis, Other (hammer toes w surgery, then amp of distal toe) Derm: reports: None MRSA Hx?: No - Past Surgical History General: reports: Cholecystectomy (1972), Appendectomy (194), Bowel surgery, Colonoscopy Ortho: reports: Amputation (distal R 2nd toe for hammertoe), Other (ruptured tendon L foot) /ACCOUNTANT BUDGET: reports: 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 (1977) HEENT: reports: Cataracts (L eye 07/2015, R eye 07/2015), Tonsil/Adenoidectomy (1943) - HOSPITAL COURSE Hospital Course: We placed her in n.p.o. status, and she did have some dry heaving but no outright emesis. She did not need an NG tube. General surgery consulted on her. Initially they thought they were going to do a bowel prep and clean her out to do a colonoscopy. However they found out that her last scope was in 2019 and was recent enough that she did not need a current scope. CEA a level was done and was 1.9. Obstruction resolved on its own and she was having liquid stool by discharge. KUB shows some ileus but she is not having any pain, abdominal distention. She tolerated a low fiber diet. On admission we discussed her CODE STATUS and she says she just was not sure. So by default she was a full code. On the day of discharge she said that she had been thinking about it. Discussed it with her family. And although she wants interventions for anything that is reversible and treatable, she does not want to be resuscitated if her heart stops or her she stops breathing. She wants to be in ICU, received pressors, blood transfusions, surgeries if needed. Just not CPR or intubation and resuscitation. I have asked her to please see her surgeon of choice at follow-up. Discussion of either dilation of the stenotic stricture or repeat colon resection would be entertained. Discharge temperature was 36.8. Heart rate 82. Blood pressure 146/64. Respirations 14. 95% on room air. An absolute delightful, alert 86-year-old female who looks her age. She is 4 foot 11 inches tall, 67 kg, wears glasses, looks her stated age. Comfortable, in no acute distress. We excitedly talked about mutual authors that we like as I read the books on her shelf. Neck was supple. Lungs were clear. Regular rate and rhythm. Abdomen soft, nontender, no longer bloated. No longer distended. Extremities were without edema. She is alert, oriented, mildly deaf. Ambulating without assistance. Greater than 30 minutes was spent coordinating discharge. She has received instructions about a low residue diet. Follow-up with her primary care provider. And all of her medications from home were to be resumed except I stopped her fiber. She is to be started on ferrous gluconate. She is already 3 1 dose of 1000 mg of iron here. - ALLERGIES Allergies/Adverse Reactions: Allergies Allergy/AdvReac Type Severity Reaction Status Date / Time hydrocodone Allergy Unknown Verified 04/16/22 05:23 hydroxyzine Allergy Unknown Verified 04/16/22 05:23 iodine Allergy Unknown Verified 04/16/22 05:23 morphine Allergy Unknown Verified 04/16/22 05:23 - MEDICATIONS Home Medications: Ambulatory Orders Medication Instructions Recorded Confirmed Atorvastatin Calcium 20 mg PO DAILY 06/24/15 04/16/22 Multivit with Calcium,Iron,Min 1 each PO DAILY 06/24/15 04/16/22 [Multiple Vitamins For Women] Acyclovir 1 cap PO Q4HR 04/16/22 04/16/22 Losartan [Cozaar] 1 tab PO DAILY 04/16/22 04/16/22 traZODone [Desyrel] 1 tab PO HS 04/16/22 04/16/22 Ferrous Gluconate 324 mg PO DAILY #60 tablet 04/18/22 - LABS Result Diagrams: 04/18/22 05:14 04/18/22 05:14
== END 2022-04-18 18:50 | disposition home or self-care (01) | DRG 390 ==
LOC: EDUNIT# → ED 04:31 → MS2 11:40 → OBSVTOIN 04-17 16:06
PROVIDERS: ADMIT Specialist; ATTEND Specialist
DX: K56.609 Unspecified intestinal obstruction, unspecified as to partial versus complete obstruction (principal); I10 Essential (primary) hypertension; Z20.822 Contact with and (suspected) exposure to COVID-19; K56.699 Other intestinal obstruction unspecified as to partial versus complete obstruction; D50.8 Other iron deficiency anemias; R63.4 Abnormal weight loss; D72.829 Elevated white blood cell count, unspecified; F32.A Depression, unspecified; J44.9 Chronic obstructive pulmonary disease, unspecified; Z66 Do not resuscitate; R63.0 Anorexia; K57.30 Diverticulosis of large intestine without perforation or abscess without bleeding; K59.89 Other specified functional intestinal disorders; F43.21 Adjustment disorder with depressed mood; Z85.038 Personal history of other malignant neoplasm of large intestine; Z98.0 Intestinal bypass and anastomosis status; Z68.29 Body mass index [BMI] 29.0-29.9, adult; Z87.891 Personal history of nicotine dependence; Z90.49 Acquired absence of other specified parts of digestive tract
CPT/HCPCS: 36415; 74018; 74177; 80048; 80053; 81003; 82378; 83690; 85025; 87493; 87635; 96365; 96366; 96372; 96375; 96376; 99283; 99285; G0378; J1170; J1650; J1750; Q0162; Q9963; Q9967; 81001; 87086

== ENCOUNTER 2022-04-20 19:15 | Emergency (ER) | payer MEDICARE, OTHER ==
--- NOTE | 2022-04-20 19:40 | ED Physician Documentation ---
PD HPI ABD PAIN - Stated complaint Stated Complaint: VOMITTING - Chief complaint Chief Complaint: Abd Pain - History obtained from History obtained from: Patient - History of Present Illness Quality: Cramping, Pain Improved by: Other (no ameliorating factors) Worsened by: Other (no exacerbating factors) Associated symptoms: Nausea, Vomiting, Diarrhea. No: Fever, Constipation Recently seen: Emergency Dept, Admitted - Additional information Additional information: HPI from patient. Patient complains of "the same thing as last time I was here". She complains of nausea and vomiting with mild periumbilical cramping pain that waxes and wanes. This patient was admitted April 16 (5 days ago) from this emergency department into [facility] And was discharged 2 days ago (April 18). 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 The patient says that she is passing gas and watery, liquid stool. Her chief concern is that her nausea and vomiting had subsided but has gradually reoccurred since earlier this morning and progressed throughout the day. This is associated with similar periumbilical cramping discomfort as with her previous visit, except that she says the pain is much less pronounced than when she was here previously. Patient indicates to me that when she was vomiting this evening, she noted that the vomitus contained most of her p.o. intake since she was discharged. Review of Systems Constitutional: denies: Fever Cardiac: reports: Reviewed and negative Respiratory: reports: Reviewed and negative GI: reports: Abdominal Pain, Nausea, Vomiting, Diarrhea. denies: Abdominal Swelling, Hematemesis, Bloody / black stool : denies: Dysuria, Frequency PD PAST MEDICAL HISTORY - Past Medical History Past Medical History: Yes Cardiovascular: Hypertension, High cholesterol Respiratory: None Neuro: None Endocrine/Autoimmune: None GI: Diverticulitis, Other TREKKING GUIDE: None : None HEENT: Glaucoma, Chronic hearing loss Psych: None Musculoskeletal: None Derm: None - Past Surgical History Past Surgical History: Yes General: Cholecystectomy, Appendectomy Ortho: Other /TREKKING GUIDE: section, 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 HEENT: Cataracts, Tonsil/Adenoidectomy - Present Medications Home Medications: Ambulatory Orders Medication Instructions Recorded Confirmed Atorvastatin Calcium 20 mg PO DAILY 06/24/15 04/20/22 Multivit with Calcium,Iron,Min 1 each PO DAILY 06/24/15 04/20/22 [Multiple Vitamins For Women] Acyclovir 1 cap PO Q4HR 04/16/22 04/20/22 Losartan [Cozaar] 1 tab PO DAILY 04/16/22 04/20/22 traZODone [Desyrel] 1 tab PO HS 04/16/22 04/20/22 Psyllium Husk [Metamucil] 1 cap PO BID 04/20/22 04/20/22 - Allergies Allergies/Adverse Reactions: Allergies Allergy/AdvReac Type Severity Reaction Status Date / Time hydrocodone Allergy Unknown Verified 04/20/22 19:25 hydroxyzine Allergy Unknown Verified 04/20/22 19:25 iodine Allergy Unknown Verified 04/20/22 19:25 morphine Allergy Unknown Verified 04/20/22 19:25 - Social History Does the pt smoke?: No Smoking Status: Never smoker Does the pt drink ETOH?: Yes Does the pt have substance abuse?: No - Immunizations Immunizations are current?: Yes - POLST Patient has POLST: No POLST Status: Full Code PD ED PE NORMAL - Vitals Vital signs reviewed: Yes - General General: Alert and oriented X 3, No acute distress, Well developed/nourished - HEENT HEENT: Moist mucous membranes - Neck Neck: Supple, no meningeal sign - Cardiac Cardiac: RRR - Respiratory Respiratory: No respiratory distress, Clear bilaterally - Abdomen Abdomen: Soft, Non distended - Derm Derm: Normal color, Warm and dry - Extremities Extremities: No edema - Neuro Neuro: Alert and oriented X 3 PD ED PE EXPANDED - Abdomen Abdomen: Decreased BS, Tender to palpation (mild periumbilical TTP without rebound or guarding) Results - Vitals Vitals: Vital Signs - 24 hr 04/20/22 04/20/22 04/20/22 19:20 21:19 23:00 Temperature 36.8 C Heart Rate 120 H 90 81 Respiratory 16 18 18 Rate Blood Pressure 199/81 H 159/68 H 180/81 H O2 Saturation 97 96 96 04/21/22 04/21/22 04/21/22 00:17 01:28 08:02 Temperature Heart Rate 80 91 73 Respiratory 18 18 18 Rate Blood Pressure 168/75 H 168/78 H 141/56 H O2 Saturation 96 97 95 04/21/22 10:17 Temperature Heart Rate 78 Respiratory 20 Rate Blood Pressure 167/64 H O2 Saturation 97 Oxygen O2 Source Room air - Labs Labs: Microbiology 04/20/22 20:35 Urine Culture - Preliminary Urine,Clean Catch CULTURE IN PROGRESS. RESULTS TO FOLLOW. Laboratory Tests 04/20/22 04/20/22 04/20/22 20:35 20:54 20:54 WBC 10.3 RBC 4.00 L Hgb 9.5 L Hct 33.0 L MCV 82.5 MCH 23.8 L MCHC 28.8 L RDW 23.5 H Plt Count 392 MPV 9.4 Neut # (Auto) 8.5 H Lymph # (Auto) 0.7 L Lane # (Auto) 1.0 Eos # (Auto) 0.0 Baso # (Auto) 0.0 Absolute Nucleated RBC 0.00 Nucleated RBC % 0.0 Manual Slide Review Indicated Platelet Estimate NORMAL (130-450,000) Platelet Morphology NORMAL APPEARANCE RBC Morph Micro Appear 1+ POLYCHROMASIA Sodium 133 L Potassium 4.0 Chloride 97 L Carbon Dioxide 21 Anion Gap 15.0 H BUN 11 Creatinine 0.8 Estimated GFR (MDRD) 68 L Glucose 120 H Lactic Acid Calcium 9.4 Total Bilirubin 0.8 AST 25 ALT 18 Alkaline Phosphatase 55 Total Protein 6.5 L Albumin 3.8 Globulin 2.7 Albumin/Globulin Ratio 1.4 Lipase 45 Urine Color YELLOW Urine Clarity CLOUDY Urine pH 5.5 Ur Specific [place] >=1.030 H Urine Protein 30 H Urine Glucose (UA) NEGATIVE Urine Ketones 40 H Urine Occult Blood TRACE-INTA Urine Nitrite NEGATIVE Urine Bilirubin NEGATIVE Urine Urobilinogen 0.2 (NORMAL) Ur Leukocyte Esterase TRACE H Urine RBC 0-5 Urine WBC 4-5 Ur Squamous Epith Cells FEW Squamous Urine Crystals 6-10 Calcium Oxalate Amorphous Sediment Few Urine Bacteria Rare Ur Microscopic Review INDICATED Urine Culture Comments INDICATED 04/20/22 20:54 WBC RBC Hgb Hct MCV MCH MCHC RDW Plt Count MPV Neut # (Auto) Lymph # (Auto) Lane # (Auto) Eos # (Auto) Baso # (Auto) Absolute Nucleated RBC Nucleated RBC % Manual Slide Review Platelet Estimate Platelet Morphology RBC Morph Micro Appear Sodium Potassium Chloride Carbon Dioxide Anion Gap BUN Creatinine Estimated GFR (MDRD) Glucose Lactic Acid 1.2 Calcium Total Bilirubin AST ALT Alkaline Phosphatase Total Protein Albumin Globulin Albumin/Globulin Ratio Lipase Urine Color Urine Clarity Urine pH Ur Specific [place] Urine Protein Urine Glucose (UA) Urine Ketones Urine Occult Blood Urine Nitrite Urine Bilirubin Urine Urobilinogen Ur Leukocyte Esterase Urine RBC Urine WBC Ur Squamous Epith Cells Urine Crystals Amorphous Sediment Urine Bacteria Ur Microscopic Review Urine Culture Comments - Rads (name of study) CT A/P with IV and PO contrast Radiology: Prelim report reviewed, See rad report PD Medical Decision Making - ED course Complexity details: reviewed old records (Reviewed records from recent admission to [facility] (including my ED note, the surgical consult and progress notes, as well as the hospitalist's d/c summary), reviewed results, re-evaluated patient, considered differential, d/w patient ED course: Tests ordered and results reviewed by me: CBC, ER abdominal panel, CT abdomen and pelvis with intravenous and oral contrast. IVs established and she is given 1 L normal saline bolus, 15 mg IV Toradol, and 10 mg intravenous Reglan. There are no concerning or diagnostic findings on the blood test performed tonight; hemoglobin is 9.5, which is improved from the results from her recent inpatient stay. Patient indicates she was given iron transfusion during the hospital stay. Patient reported good pain relief with the 15 mg of IV Toradol and she did not request nor require any further pain medication for the remainder of my shift. I discussed the case, including the recent inpatient history, as well as [facility] test results (particularly the CT results) with Dr. Sánchez (product control and logistics analyst surgery for [facility]). She recommends admission to hospitalist service, and she will discussed the case with the surgeon that will be on-call tomorrow (Dr. Estrada). Patient is held in the emergency department overnight due to no beds available at [facility]. Care of patient turned over to the oncoming ED physician (Dr. Lozano) at end of my shift pending disposition. Departure - Departure Disposition: 66 [facility] DC/Xfer Clinical Impression: Small bowel obstruction Condition: Stable
[2022-04-20] MEDS ORDERED: SODIUM CHLORIDE 0.9% 1,000 ML IV STA (20:11)
[2022-04-20] MEDS ORDERED: KETOROLAC 15 MG/ML VIAL IVP STA (20:12)
[2022-04-20] MEDS ORDERED: METOCLOPRAMIDE 10 MG/2 ML VIAL IVP STA (20:12)
[2022-04-20 20:43] LABS: CLARITY,URINE CLOUDY (CLEAR); GLUCOSE, URINE (UA) NEGATIVE (NEGATIVE); KETONES,URINE (UA) 40 mg/dL (NEGATIVE); LEUKOCYTE ESTERASE, URINE TRACE (NEGATIVE); NITRITE,URINE NEGATIVE (NEGATIVE); OCCULT BLOOD,URINE TRACE-INTA (NEGATIVE); PH,URINE 5.5 PH (5.0-7.5); PROTEIN,URINE 30 mg/dL (NEGATIVE); UROBILINOGEN,URINE 0.2 (NORMAL) E.U./dL (NORMAL)
[2022-04-20] MEDS ORDERED: DIATRIZOATE MEGLU/DIATRIZO SOD 30 ML BOTTLE PO ONE ×2 (20:43→20:58)
[2022-04-20 20:53] LABS: BILIRUBIN,URINE NEGATIVE (NEGATIVE); ICTOTEST,URINE NEGATIVE
[2022-04-20 20:54] LABS: AMORPHOUS SEDIMENT,UR Few /LPF; BACTERIA,URINE Rare /HPF (None Seen); CRYSTALS,URINE 6-10 Calcium Oxalate /LPF; RBC,URINE 0-5 /HPF (0-5); SQUAMOUS EPITHELIAL CELL,UR FEW Squamous (<= Few)
[2022-04-20 21:03] LABS: BASOPHILS % (AUTO) 0.3 %; EOSINOPHILS % (AUTO) 0.3 %; HGB - HEMOGLOBIN 9.5 g/dL (12.0-16.0); LYMPHOCYTES # (AUTO) 0.7 10^3/uL (1.5-3.5); MEAN CORPUSCULAR HEMOGLOBIN 23.8 pg (27.0-31.0); MEAN CORPUSCULAR HGB CONC 28.8 g/dL (32.0-36.0); MEAN CORPUSCULAR VOLUME 82.5 fL (81.0-99.0); MEAN PLATELET VOLUME 9.4 fL (7.9-10.8); MONOCYTES % (AUTO) 9.6 %; NEUTROPHILS # (AUTO) 8.5 10^3/uL (1.5-6.6); NEUTROPHILS % (AUTO) 82.4 %; PLT - PLATELET COUNT 392 10^3/uL (130-450); RED CELL DISTRIBUTION WIDTH 23.5 % (12.0-15.0); WHITE BLOOD COUNT 10.3 x10^3/uL (4.8-10.8)
[2022-04-20 21:16] LABS: ALBUMIN 3.8 g/dL (3.2-5.5); ALBUMIN/GLOBULIN RATIO 1.4 (1.0-2.2); BILIRUBIN,TOTAL 0.8 mg/dL (0.2-1.0); CALCIUM 9.4 mg/dL (8.5-10.3); CREATININE 0.8 mg/dL (0.4-1.0); TOTAL PROTEIN 6.5 g/dL (6.7-8.2)
[2022-04-20 21:32] LABS: PLATELET ESTIMATE, MANUAL NORMAL (130-450,000) (NORMAL); PLATELET MORPHOLOGY NORMAL APPEARANCE (NORMAL); SLIDE REVIEW? Indicated
[2022-04-20] MEDS ORDERED: iohexoL-300 100 ML VIAL ONE (21:35)
--- NOTE | 2022-04-20 22:38 | CT Report ---
PROCEDURE: ABDOMEN/PELVIS W INDICATIONS: n/v, abdominal pain CONTRAST: 100 ML OMNI 300 TECHNIQUE: After the administration of nonionic contrast, 5 mm thick sections acquired from the diaphragms to th e symphysis. 5 mm thick coronal and sagittal reformats were acquired. For radiation dose reduction, the following was used: automated exposure control, adjustment of mA and/or kV according to patient size. COMPARISON: Recent comparison CT 04/16/2022 FINDINGS: Image quality: Excellent. ABDOMEN: Lung bases: Lung bases are clear except for previously present mild lung parenchymal scarring at eac h lung base.. Heart size is normal. Solid organs: Liver and spleen are normal in size and enhancement. Gallbladder not visualized and l ikely resected. Biliary system is non dilated. Pancreas enhances normally. No adrenal nodules. Ki dneys demonstrate normal size and enhancement, without hydronephrosis. Peritoneum and bowel: Bowel loops demonstrate normal wall thickness and caliber except in an area at the right lower abdomen/pelvis junction anterior to the anterior superior iliac spine where an enter ic staple line is present in what appears to be mural thickening of the involved bowel is present, be st seen centered on series 3 image [address] series 3 image 44. This is near a focus of omental herniation through a peritoneal defect at the midline centered on series 3 image 43, which d oes not appear incarcerated or strangulated. Small bowel loops are fluid-prominent, the colon does no t appear distended.. No free fluid or air. Nodes and vessels: No retroperitoneal or mesenteric adenopathy by size criteria. Aorta and inferior vena cava are normal in size. Miscellaneous: No ventral hernias. PELVIS: Genitourinary: Bladder wall thickness is normal. Miscellaneous: No inguinal hernias or adenopathy. Bones: No suspicious bony lesions. No vertebral body compression fractures. IMPRESSION: 1. Presumed prior cholecystectomy. Mild prominence of the bile ducts, but a mass or calculus at the d istal common duct is not found. Next 2. Some form of enteric surgical procedure has been performed centered at the abdomen/pelvis junction on the right at approximately the level of the anterior superior iliac spine. An enteric staple line is present in this area and the bowel loops involved show abnormal mural thickening to the degree th at there is suspicion for potential of malignancy in that area. The prominence of fluid within small bowel elsewhere raises concern for partial small bowel obstruction. The colon is not distended. Reviewed by: Radu Briceño MD on 04/20/2022 10:37 PM PST Approved by: Radu Briceño MD on 04/20/2022 10:37 PM PST Station ID: [id number]
[2022-04-21] MEDS ORDERED: ASPIRIN CHEW 81 MG TABLET PO STA
[2022-04-21] MEDS ORDERED: iohexoL-300 100 ML VIAL IVP ONE (00:18)
[2022-04-21] MEDS ORDERED: LACTATED RINGERS 1,000 ML IV STA (10:45)
--- NOTE | 2022-04-21 11:28 | CONSULTATION NOTE ---
Referring Provider Name of Referring Provider:: Kunal Cervantes) Consult Date: 04/21/22 Chief Complaint - Chief Complaint Chief Complaint: abdominal pain, n/v History of Present Illness - Admitted From Admitted From:: ED - History Obtained From Records Reviewed: yes History obtained from: chart, patient, son (Neto), medicine team - History of Present Illness HPI Comment/Other: This is a very pleasant 86-year-old lady with a remote history of a right hemicolectomy for colon cancer in 1996. Shewas recently admitted with a partial small bowel obstruction secondary to a narrowing at her ileocolic anastomosis. She was in the hospital from 04/16 until 04/18, during which time her diet was slowly advanced from n.p.o. to a soft diet. She was tolerating this well and was discharged home. After returning home, the patient tried to eat a soft diet with increasing discomfort. Yesterday afternoon, she vomited several times and was instructed by her primary care provider's office to return to the emergency department.She states that throughout this time, she has continued to pass flatus and have multiple liquid bowel movements per day.Her last bowel movement was this morning at 7 AM. On reevaluation, the patient CT scan is consistent with a persistent partial small bowel obstruction at the anastomosis. This morning, the patient denies any abdominal pain or nausea. She states that she is feeling "pretty good". History - Past Medical History Cardiovascular: reports: Hypertension, High cholesterol Respiratory: reports: None Neuro: reports: None Endocrine/Autoimmune: reports: None GI: reports: Diverticulitis, Other FIELD MAP TECHNICIAN: reports: None : reports: None HEENT: reports: Glaucoma, Chronic hearing loss, Other (edentulous) Psych: reports: None Musculoskeletal: reports: None Derm: reports: None MRSA Hx?: No - Past Surgical History General: reports: Cholecystectomy, Appendectomy Ortho: reports: Other /FIELD MAP TECHNICIAN: reports: section, 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 HEENT: reports: Cataracts, Tonsil/Adenoidectomy - Family & Social History Family History Comment/Other: Dad at age 48 of leukemia. Mom in her 90s after living in a intermediate for 13 years after a stroke at 80. 1 sister alive and well in [place] and is 2 years younger than her. 2 children. Son is morbidly obese. Daughter has some type of autoimmune arthritis disease Living Situation: Alone Social History Notes: From [place]. Met and her [employer] who took her to [facility], then [facility], then [facility], then [place], then [facility], and then [place]. 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 Smoked [id number] history. No history of alcohol abuse or recreational substance abuse. They moved to the [place] [facility] and have loved it here. They lived in their own home. 6 months ago. - Substance History Use: Uses substance without health or social issues: NONE - POLST Patient has POLST: No POLST Status: Full Code Meds/Allgy - Home Medications Home Medications: Ambulatory Orders Medication Instructions Recorded Confirmed Atorvastatin Calcium 20 mg PO DAILY 06/24/15 04/20/22 Multivit with Calcium,Iron,Min 1 each PO DAILY 06/24/15 04/20/22 [Multiple Vitamins For Women] Acyclovir 1 cap PO Q4HR 04/16/22 04/20/22 Losartan [Cozaar] 1 tab PO DAILY 04/16/22 04/20/22 traZODone [Desyrel] 1 tab PO HS 04/16/22 04/20/22 Psyllium Husk [Metamucil] 1 cap PO BID 04/20/22 04/20/22 - Allergies Allergies/Adverse Reactions: Allergies Allergy/AdvReac Type Severity Reaction Status Date / Time hydrocodone Allergy Unknown Verified 04/20/22 19:25 hydroxyzine Allergy Unknown Verified 04/20/22 19:25 iodine Allergy Unknown Verified 04/20/22 19:25 morphine Allergy Unknown Verified 04/20/22 19:25 Review of Systems - Constitutional Constitutional: reports: Poor appetite, Weight loss (30 pounds in the last 6 months) - Ears, Nose & Throat Ears, Nose & Throat: reports: Dentures - Cardiovascular Cariovascular: denies: Palpitations, Chest pain - Respiratory Respiratory: denies: Cough, Wheezing - Gastrointestinal Gastrointestinal: reports: Other (As per HPI and past medical history) - Genitourinary Genitourinary: reports: Incontinence - Musculoskeletal Musculoskeletal: reports: Muscle pain - Integumentary Integumentary: denies: Rash - Hematologic/Lymphatic Hematologic/Lymphatic: reports: Anemia Exam - Vital Signs Reviewed Vital Signs: Yes Vital Signs: Vital Signs x48h Pulse Resp BP Pulse Ox 04/21/22 10:17 78 20 167/64 H 97 04/21/22 08:02 73 18 141/56 H 95 - Physical Exam General Appearance: positive: No acute distress, Alert Eyes Bilateral: positive: Normal inspection, PERRL, EOMI ENT: positive: No signs of dehydration Neck: positive: Trachea midline Respiratory: positive: Chest non-tender, No respiratory distress Cardiovascular: positive: Regular rate & rhythm, No murmur Peripheral Pulses: positive: 2+ Abdomen: positive: Non-tender. negative: No distention (Mild distention), Guarding, Rebound Skin: positive: Color nml, No rash, Other (Multiple bruises from blood draws) Extremities: positive: Non-tender, Full ROM Neurologic/Psychiatric: positive: Oriented x3 Conclusion and Plan - Lab Results Laboratory Results 04/20/22 20:54: Lactic Acid 1.2 04/20/22 20:54: Sodium 133 L, Potassium 4.0, Chloride 97 L, Carbon Dioxide 21, Anion Gap 15.0 H, BUN 11, Creatinine 0.8, Estimated GFR (MDRD) 68 L, Glucose 120 H, Calcium 9.4, Total Bilirubin 0.8, AST 25, ALT 18, Alkaline Phosphatase 55, Total Protein 6.5 L, Albumin 3.8, Globulin 2.7, Albumin/Globulin Ratio 1.4, Lipase 45 04/20/22 20:54: WBC 10.3, RBC 4.00 L, Hgb 9.5 L, Hct 33.0 L, MCV 82.5, MCH 23.8 L, MCHC 28.8 L, RDW 23.5 H, Plt Count 392, MPV 9.4, Neut # (Auto) 8.5 H, Lymph # (Auto) 0.7 L, [place] # (Auto) 1.0, Eos # (Auto) 0.0, Baso # (Auto) 0.0, Absolute Nucleated RBC 0.00, Nucleated RBC % 0.0, Manual Slide Review Indicated, Platelet Estimate NORMAL (130-450,000), Platelet Morphology NORMAL APPEARANCE, RBC Morph Micro Appear 1+ POLYCHROMASIA 04/20/22 20:35: Urine Color YELLOW, Urine Clarity CLOUDY, Urine pH 5.5, Ur Specific [place] >=1.030 H, Urine Protein 30 H, Urine Glucose (UA) NEGATIVE, Urine Ketones 40 H, Urine Occult Blood TRACE-INTA, Urine Nitrite NEGATIVE, Urine Bilirubin NEGATIVE, Urine Urobilinogen 0.2 (NORMAL), Ur Leukocyte Esterase TRACE H, Urine RBC 0-5, Urine WBC 4-5, Ur Squamous Epith Cells FEW Squamous, Urine Crystals 6-10 Calcium Oxalate, Amorphous Sediment Few, Urine Bacteria Rare, Ur Microscopic Review INDICATED, Urine Culture Comments INDICATED - Diagnostic Imaging Results Diagnostic Imaging Results: positive: Final report reviewed, Read independently - Consultation Note Consultation Note: This is an 86-year-old female with: 1. Partial small bowel obstruction at anastomosis -The patient had a reassuring colonoscopy in 2019, and her CEA level is within n ormal limits. Both of these are reassuring but the underlying cause of the anastomotic narrowing is not malignant. The patient has been tolerating clears up to this point. I recommend a liquid diet with Ensure supplementation to build up the patient's protein stores per surgery. She may sip on the supplements throughout the day and does not need to be able to tolerate a large volume at any 1 time.Ideally, the patient would be on protein supplementation for at least 1 to 2 weeks prior to surgery. -If she is able to tolerate liquids, she could be discharged home with plan for close follow-up and elective surgery If she is unable to tolerate liquids moving forward, she may require surgical intervention more urgently. Ideally, we would be able to arrange for frozen sections by pathology if needed at the time of the patient's surgery given the uncertainty of the underlying etiology of the patient's obstruction. In discussion with the patient regarding her wishes, she would prefer to have Dr. Soni perform her surgery as she has an established relationship with him. -I discussed the rationale behind this plan of care with the patient and the primary team in detail. The patient and her son, Neto, voiced understanding, their questions were answered, and wished to proceed with the above outlined plan. 2. Hypertension, High cholesterol, glaucoma -As per primary team Thank you for consulting me in the care of this patient. I will continue to follow along closely.
[2022-04-21] MEDS: ALBUTEROL 1 PUFF INH SCH ×2 (12:39→21:02)
[2022-04-21] MEDS ORDERED: D5.45NS W/20 MEQ KCL 1,000 ML IV STA (16:29)
--- NOTE | 2022-04-21 17:37 | ED Physician Documentation ---
ED Addendum - Addendum Addendum: 04/21/22 17:35 The goal was to admit the patient to medicine with surgical consult. There are still no beds available today. The patient is seen by both the hospitalist and Dr. Lopez on for surgery with a consultation note placed by surgery. The patient is doing fairly well. She did ask me about reviewing her pulmonary function test from earlier March that suggested some reactive airway disease/COPD with reversibility with albuterol. She had been suggested to have an albuterol inhaler prescribed. She is wonder if that would be appropriate to use here. I did order 2 puffs 3 times a day regularly. Otherwise the patient remains stable. She is not having any vomiting. Dr. Lopez suggested starting clear liquid diet and seeing how she does with that. So far she is tolerating it okay. We will see how she does overnight with reevaluation by surgery tomorrow. If her symptoms are controlled and intake improves, then potential for discharge with subsequent idea of likely needing surgery to remove the restricted area of small bowel that is causing the recurrent obstruction.
[2022-04-22] MEDS ORDERED: SODIUM CHLORIDE 0.9% 1,000 ML IV STA (01:25)
[2022-04-22] MEDS ORDERED: ZOLPIDEM 5 MG TABLET PO PRN (03:35)
[2022-04-22] MEDS ORDERED: ACETAMINOPHEN 325 MG TABLET PO STA (03:41)
[2022-04-22 05:29] LABS: BASOPHILS % (AUTO) 0.4 %; EOSINOPHILS # (AUTO) 0.4 10^3/uL (0.0-0.7); EOSINOPHILS % (AUTO) 4.5 %; HCT - HEMATOCRIT 26.9 % (37.0-47.0); HGB - HEMOGLOBIN 7.8 g/dL (12.0-16.0); LYMPHOCYTES % (AUTO) 11.9 %; MEAN CORPUSCULAR HEMOGLOBIN 24.3 pg (27.0-31.0); MEAN CORPUSCULAR VOLUME 83.8 fL (81.0-99.0); MEAN PLATELET VOLUME 9.6 fL (7.9-10.8); MONOCYTES % (AUTO) 11.3 %; NEUTROPHILS # (AUTO) 6.1 10^3/uL (1.5-6.6); NEUTROPHILS % (AUTO) 71.5 %; PLT - PLATELET COUNT 315 10^3/uL (130-450); RED BLOOD COUNT 3.21 10^6/uL (4.20-5.40); RED CELL DISTRIBUTION WIDTH 24.5 % (12.0-15.0); WHITE BLOOD COUNT 8.5 x10^3/uL (4.8-10.8)
[2022-04-22 05:32] LABS: SLIDE REVIEW? Indicated
[2022-04-22 05:40] LABS: CALCIUM 7.9 mg/dL (8.5-10.3); CREATININE 0.6 mg/dL (0.4-1.0); POTASSIUM 3.4 mmol/L (3.5-5.0)
[2022-04-22 05:47] LABS: PLATELET ESTIMATE, MANUAL NORMAL (130-450,000) (NORMAL); PLATELET MORPHOLOGY NORMAL APPEARANCE (NORMAL); WBC MORPHOLOGY (MULTIPLE) NORMAL APPEARANCE (NORMAL)
[2022-04-22] MEDS: ALBUTEROL 1 PUFF INH SCH ×3 (05:47→10:50)
[2022-04-22] MEDS ORDERED: D5.45NS W/20 MEQ KCL 1,000 ML IV STA (08:28)
[2022-04-22] MEDS ORDERED: ONDANSETRON 4 MG/2 ML VIAL IVP STA (08:29)
[2022-04-22] MEDS ORDERED: ALBUTEROL 1 PUFF INH PRN (12:11)
--- NOTE | 2022-04-22 16:23 | PROVIDER PROGRESS NOTE ---
Subjective - Other Other Information/Narrative: Tolerating clears, minimal nausea. No vomiting. +BM. Minimal abdominal discomfort. Objective - Patient Data Reviewed Vital Signs: Yes Vital Signs: Vital Signs x48h Pulse Resp BP Pulse Ox 04/22/22 15:03 73 18 150/70 H 95 04/22/22 10:53 78 20 Weight: Weight 04/20/22 04/21/22 04/22/22 23:59 23:59 23:59 Weight (kg) 63.503 kg Intake & Output: Intake and Output Totals x24h 04/20/22 04/21/22 04/22/22 23:59 23:59 23:59 Intake Total 1000 1000 2000 Balance 1000 1000 2000 - Lab Results Lab Results: 04/22/22 05:16 04/22/22 05:16 Other Lab Results: Lab Results x24hrs 04/22/22 04/22/22 Range/Units 05:16 05:16 WBC 8.5 (4.8-10.8) x10^3/uL RBC 3.21 L (4.20-5.40) 10^6/uL Hgb 7.8 L (12.0-16.0) g/dL Hct 26.9 L (37.0-47.0) % MCV 83.8 (81.0-99.0) fL MCH 24.3 L (27.0-31.0) pg MCHC 29.0 L (32.0-36.0) g/dL RDW 24.5 H (12.0-15.0) % Plt Count 315 (130-450) 10^3/uL MPV 9.6 (7.9-10.8) fL Neut # (Auto) 6.1 (1.5-6.6) 10^3/uL Lymph # (Auto) 1.0 L (1.5-3.5) 10^3/uL [place] # (Auto) 1.0 (0.0-1.0) 10^3/uL Eos # (Auto) 0.4 (0.0-0.7) 10^3/uL Baso # (Auto) 0.0 (0.0-0.1) 10^3/uL Absolute Nucleated RBC 0.00 x10^3/uL Nucleated RBC % 0.0 /100WBC Manual Slide Review Indicated WBC Morphology NORMAL APPEARANCE (NORMAL) Platelet Estimate NORMAL (130-450,000) (NORMAL) Platelet Morphology NORMAL APPEARANCE (NORMAL) RBC Morph Micro Appear 1+ HYPOCHROMASIA (NORMAL) Sodium 136 (135-145) mmol/L Potassium 3.4 L (3.5-5.0) mmol/L Chloride 107 (101-111) mmol/L Carbon Dioxide 20 L (21-32) mmol/L Anion Gap 9.0 (6-13) BUN 6 (6-20) mg/dL Creatinine 0.6 (0.4-1.0) mg/dL Estimated GFR (MDRD) 95 (>89) Glucose 85 (70-100) mg/dL Calcium 7.9 L (8.5-10.3) mg/dL - Current Medications Current Medications: Current Medications Generic Name Dose Route Start Last Admin Trade Name Freq PRN Reason Stop Dose Admin Potassium Chloride/Dextrose/Sod Cl 1,000 mls @ 75 mls/hr 04/22/22 08:28 04/22/22 08:50 D5.45ns W/20 Meq Kcl IV 04/22/22 21:47 75 mls/hr .[id number] STA Administration - Physical Exam General Appearance: positive: No acute distress, Alert Eyes Bilateral: positive: Normal inspection, PERRL, EOMI ENT: positive: No signs of dehydration Neck: positive: Trachea midline Respiratory: positive: Chest non-tender, No respiratory distress Cardiovascular: positive: Regular rate & rhythm Abdomen: positive: Non-tender, No distention. negative: Guarding, Rebound Skin: positive: Color nml, No rash Extremities: positive: Non-tender Neurologic/Psychiatric: positive: Oriented x3 Impression/Plan - Problem List Problem List: This is an 86-year-old female with: 1. Partial small bowel obstruction at anastomosis -The patient had a reassuring colonoscopy in 2019, and her CEA level is within normal limits. Both of these are reassuring but the underlying cause of the anastomotic narrowing is not malignant. The patient is tolerating clears well. I recommend adding Ensure supplementation to build up the patient's protein stores for surgery. She may sip on the supplements throughout the day and does not need to be able to tolerate a large volume at any one time. Ideally, the patient would be on protein supplementation for at least 1 to 2 weeks prior to surgery. -If she is able to tolerate this diet for 24 hours, she could be discharged home with plan for close follow-up and elective surgery. In discussion with the patient regarding her wishes, she would prefer to have Dr. Soni perform her surgery as she has an established relationship with him. -Patient questions were answered and she is comfortable with the plan of care. 2. Hypertension, High cholesterol, glaucoma -As per primary team She is boarding in the ED waiting for a bed on the floor. Thank you for consulting me in the care of this patient. I will continue to follow.
--- NOTE | 2022-04-22 16:40 | ED Physician Documentation ---
ED Addendum - Addendum Addendum: 04/22/22 16:[address] Lozano at 3 PM shift change. Briefly this is an 86-year-old woman with partial small bowel obstruction who is improving. She has a surgical history and will probably need outpatient follow-up for surgery with Dr. Soni. She has been on clear liquids so far which she has tolerated well. Distention is less and she has had flatus and a small BM. Dr. Geiger at the bedside and we are advancing her to full liquid diet. Patient uncomfortable going home at this juncture and would like to stay 1 more night given that she has already relapsed.
[2022-04-22] MEDS ORDERED: traZODone 50 MG TABLET PO SCH (21:00)
[2022-04-23] MEDS ORDERED: ACETAMINOPHEN 325 MG TABLET PO STA (03:25)
[2022-04-23] MEDS ORDERED: CALCIUM CARBONATE CHEW 500 MG TABLET PO STA (03:25)
--- NOTE | 2022-04-23 07:24 | PROVIDER PROGRESS NOTE ---
Subjective - Other Other Information/Narrative: Patient tolerating full liquid diet and Ensure. Minimal nausea, no vomiting. Patient states she was feeling more bloated last night, but had a BM last night and another this morning and is now feeling "ok". No f/c. Minimal ambulation as she is restricted to her room in the ED. Objective - Patient Data Reviewed Vital Signs: Yes Vital Signs: Vital Signs x48h Pulse Resp BP Pulse Ox 04/23/22 06:46 76 122/102 H 93 04/23/22 04:42 77 182/75 H 96 04/23/22 03:00 76 17 173/68 H 95 04/23/22 01:00 77 17 181/63 H 95 Intake & Output: Intake and Output Totals x24h 04/21/22 04/22/22 04/23/22 23:59 23:59 23:59 Intake Total 1000 2638.75 Balance 1000 2638.75 - Lab Results Lab Results: 04/22/22 05:16 04/22/22 05:16 - Current Medications Current Medications: Current Medications Generic Name Dose Route Start Last Admin Trade Name Freq PRN Reason Stop Dose Admin Trazodone HCl 25 mg 04/22/22 21:00 04/22/22 20:43 Trazodone 50 Mg Tablet PO 25 mg QPM [place] Administration - Physical Exam General Appearance: positive: No acute distress, Alert Eyes Bilateral: positive: Normal inspection, PERRL ENT: positive: No signs of dehydration Respiratory: positive: Chest non-tender, No respiratory distress Cardiovascular: positive: Regular rate & rhythm Abdomen: positive: Non-tender. negative: No distention (mild), Guarding, Rebound Skin: positive: Color nml, No rash, Other (B UE with bruising from recent phlebotomy and IV attempts.) Extremities: positive: Non-tender, Full ROM Neurologic/Psychiatric: positive: Oriented x3 Impression/Plan - Problem List Problem List: This is an 86-year-old female with: 1. Partial small bowel obstruction at anastomosis -The patient had a reassuring colonoscopy in 2019, and her CEA level is within normal limits. Both of these are reassuring, but the underlying nature of the narrowed anastomosis likely will not be clear until revision. The patient is tolerating liquids and Ensure supplementation to build up the patient's protein stores for surgery. She may sip on the supplements throughout the day and does not need to be able to tolerate a large volume at any one time. Ideally, the patient would be on protein supplementation for at least 1 to 2 weeks prior to surgery. -She has tolerated this diet for nearly 24 hours. At this time, she is stable from a surgical standpoint for discharge to home with plan for close follow-up and elective surgery. In discussion with the patient regarding her wishes, she would prefer to have Dr. Soni perform her surgery as she has an established relationship with him. -Patient questions were answered and she is comfortable with the plan of care. I've also discussed the patient's status and plan with the patient's family (including her son, Neto, and granddaughter, Jacque) 2. Hypertension, High cholesterol, glaucoma -As per primary team She is boarding in the ED waiting for a bed on the floor. Thank you for consulting me in the care of this patient. I will continue to follow.
--- NOTE | 2022-04-23 12:33 | ED Physician Documentation ---
ED Addendum - Addendum Addendum: Patient has been boarding in the emergency department for a small bowel obstruction. Her diet was advanced yesterday. Patient has been tolerating Ensure and her full liquid diet since yesterday at dinnertime. She was seen by Dr. Geiger today. Patient can be discharged home at lunchtime if she continues to be in her current condition. No nausea or vomiting. Patient's abdominal exam is benign today. She is also comfortable with plan for discharge. Departure - Departure Disposition: 01 Home, Self Care Clinical Impression: Small bowel obstruction Condition: Stable Instructions: Obstruction Sm Bowel, ED Diet Full Liquid Follow-Up: Dex Soni MD [Provider Admit Priv/Credential] - Prescriptions: Ondansetron Odt [Zofran] 4 mg TL Q6H PRN #10 tablet PRN Reason: Nausea / Vomiting Comments: You can have a full liquid diet. As discussed, this would include anything that can go through a straw. Fully blenderized food of any type is fine. Return for new or worsening symptoms. You do need to follow-up with Dr. Soni, call his office tomorrow for an appointment. Stay on the full liquid diet until then.
[2022-04-23 14:04] VITALS: BP 150/80
== END 2022-04-23 14:27 | disposition home or self-care (01) ==
LOC: ED 19:15
DX: K56.600 Partial intestinal obstruction, unspecified as to cause (principal); Z87.891 Personal history of nicotine dependence; Z76.4 Other boarder to healthcare facility
CPT/HCPCS: 36415; 74177; 80048; 80053; 81001; 83605; 83690; 85025; 87086; 94640; 96361; 96374; 96375; 99284; A9270; J2765; J7120; Q9963; Q9967; 81003

== ENCOUNTER 2022-04-26 09:46 | Outpatient (CLI) | payer MEDICARE, OTHER ==
[2022-04-26 10:16] LABS: ABSOLUTE RETICS # AUTO 0.097 10^6/uL (0.020-0.110); BASOPHILS % (AUTO) 0.5 %; EOSINOPHILS # (AUTO) 0.3 10^3/uL (0.0-0.7); EOSINOPHILS % (AUTO) 3.4 %; HCT - HEMATOCRIT 34.6 % (37.0-47.0); HGB - HEMOGLOBIN 10.1 g/dL (12.0-16.0); LYMPHOCYTES # (AUTO) 0.9 10^3/uL (1.5-3.5); LYMPHOCYTES % (AUTO) 9.6 %; MEAN CORPUSCULAR HEMOGLOBIN 24.9 pg (27.0-31.0); MEAN CORPUSCULAR HGB CONC 29.2 g/dL (32.0-36.0); MEAN CORPUSCULAR VOLUME 85.2 fL (81.0-99.0); MEAN PLATELET VOLUME 9.8 fL (7.9-10.8); MONOCYTES # (AUTO) 0.7 10^3/uL (0.0-1.0); MONOCYTES % (AUTO) 8.3 %; NEUTROPHILS # (AUTO) 6.9 10^3/uL (1.5-6.6); NEUTROPHILS % (AUTO) 77.9 %; PLT - PLATELET COUNT 401 10^3/uL (130-450); RED BLOOD COUNT 4.06 10^6/uL (4.20-5.40); RED CELL DISTRIBUTION WIDTH 25.4 % (12.0-15.0); RETICULOCYTE COUNT % (AUTO) 2.39 % (0.5-2.3); WHITE BLOOD COUNT 8.8 x10^3/uL (4.8-10.8)
[2022-04-26 10:24] LABS: % IRON SATURATION 11 % (20-50); IRON 44 ug/dL (28-170); TOTAL IRON BINDING CAPACITY 385 ug/dL (250-450); TRANSFERRIN 275 mg/dL (192-382)
[2022-04-26 10:35] LABS: PLATELET ESTIMATE, MANUAL NORMAL (130-450,000) (NORMAL); PLATELET MORPHOLOGY NORMAL APPEARANCE (NORMAL); SLIDE REVIEW? Indicated
== END 2022-04-26 09:47 | disposition home or self-care (01) ==
LOC: LAB 09:46
PROVIDERS: ATTEND Internal Medicine
DX: D64.9 Anemia, unspecified (principal)
CPT/HCPCS: 36415; 82607; 82728; 82746; 83010; 83540; 83615; 84466; 85025; 85045

== ENCOUNTER 2022-05-23 05:31 | Outpatient (CLI) | payer MEDICARE, OTHER | END 2022-05-23 23:59 | disposition EMS.NT | LOC: EMS 05:31 | DX: R10.814 Left lower quadrant abdominal tenderness (principal); R10.813 Right lower quadrant abdominal tenderness ==

== ENCOUNTER 2023-04-02 09:11 | Emergency (ER) | payer MEDICARE, OTHER ==
--- NOTE | 2023-04-02 12:11 | ED Physician Documentation ---
History of Present Illness - Stated complaint Stated Complaint: HIGH BP - Chief complaint Chief Complaint: Cardiac - Additonal information Additional information: 87-year-old female with history of colon cancer (currently she believes she is in remission) hypertension and hypercholesterolemia presents to the emergency department today for hypertension. Patient reports that she has been having a couple findings over the last 2 weeks with elevated blood pressures, she has been measuring her blood pressure at home where she says they have been systolically in the 140s to 150s she attempted to call her primary care provider today for medication adjustment who told her to come into the emergency department to have her blood pressure evaluated. Patient is sitting calm and cooperative denies any chest pain no shortness of breath no strokelike symptoms and says she is overall feeling well but just is worried about her blood pressure. 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: section, 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 HEENT: Cataracts, Tonsil/Adenoidectomy - Present Medications Home Medications: Ambulatory Orders Medication Instructions Recorded Confirmed Atorvastatin Calcium 20 mg PO DAILY 06/24/15 03/25/23 Multivit with Calcium,Iron,Min 1 each PO DAILY 06/24/15 03/25/23 [Multiple Vitamins For Women] Acyclovir 1 cap PO Q4HR 04/16/22 03/25/23 Losartan [Cozaar] 1 tab PO DAILY 04/16/22 03/25/23 traZODone [Desyrel] 1 tab PO HS 04/16/22 03/25/23 Psyllium Husk [Metamucil] 1 cap PO BID 04/20/22 03/25/23 Ondansetron Odt [Zofran] 4 mg TL Q6H PRN #10 tablet 04/22/22 03/25/23 Fluticasone Propionate 50 mcg IH UD 03/25/23 03/25/23 Losartan [Cozaar] 50 mg PO BID 30 Days #60 tablet 04/02/23 - Allergies Allergies/Adverse Reactions: Allergies Allergy/AdvReac Type Severity Reaction Status Date / Time hydrocodone Allergy Unknown Verified 04/02/23 09:16 hydroxyzine Allergy Unknown Verified 04/02/23 09:16 iodine Allergy Unknown Verified 04/02/23 09:16 morphine Allergy Unknown Verified 04/02/23 09:16 - Social History Does the pt smoke?: No Smoking Status: Never smoker Does the pt drink ETOH?: Yes Does the pt have substance abuse?: No - Immunizations Immunizations are current?: Yes - POLST Patient has POLST: No POLST Status: Full Code PD ED PE NORMAL - Vitals Vital signs reviewed: Yes - General General: Alert and oriented X 3, No acute distress, Well developed/nourished - HEENT HEENT: Atraumatic, PERRL - Cardiac Cardiac: RRR, No murmur, No gallop, Strong equal pulses - Respiratory Respiratory: No respiratory distress, Clear bilaterally - Derm Derm: Normal color - Extremities Extremities: No deformity, No edema, No calf tenderness / cord - Neuro Neuro: Alert and oriented X 3, 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 Patient is on 50 mg losartan daily she was told to increase her losartan to twice daily. She also reports that she is not taking any of her b lood pressure routine meds today which is also most likely contributing to her hypertension states experiencing right now. She was told to go home take her a.m. meds as soon as she gets home and beginning tonight start taking her losartan in the evening as well. Patient was told to keep a log of her blood pressure medications and to recheck her blood pressure 1 hour after taking losartan and if still elevated greater than 150 systolically to take an additional losartan. Patient did not know if she had enough 50 mg losartan pills at home to get her through her next couple weeks until she is able to follow-up with her primary care provider and so a refill was sent to her preferred pharmacy. Patient says that she has an appointment a couple weeks to follow-up with her primary care provider where she plans to have her hypertension addressed while here in the ER she remains asymptomatic, no chest pain, no leg swelling, no shortness of breath, neurologically intact and denies any symptoms she is safe for discharge at this time. She was given strict return precautions. Departure - Departure Disposition: 01 Home, Self Care Clinical Impression: Hypertension Qualifiers: Hypertension type: primary hypertension Qualified Code(s): I10 - Essential (primary) hypertension Instructions: Hypertension Dc Prescriptions: Losartan [Cozaar] 50 mg PO BID 30 Days #60 tablet Comments: Thank you for trusting us with you care, as we discussed because you dont have any other symptoms with your hypertension such as chest pain, severe new leg swelling, shortness of breath, visions changes, or any stroke symptoms, there is no interventions from an ER standpoint warranted at this time. Please start taking your 50mg Losartan every morning and every evening to help with your b lood pressure, and only measure it one hour after taking medications. If your blood pressure remains over 160 systolic after one hour of taking Losartan you can take one additional pill. Most importantly please follow up with your primary care provider for ongoing medication management for your hypertension and please come back to the ER if you are starting to experience any of the symptoms listed above. Stay warm out there! Forms: PCP List Discharge Date/Time: 04/02/23 12:30
[2023-04-02 12:33] VITALS: BP 160/85; O2SAT 98
== END 2023-04-02 12:30 | disposition home or self-care (01) ==
LOC: ED 09:11
DX: I10 Essential (primary) hypertension (principal)
CPT/HCPCS: 99282; 99283

== ENCOUNTER 2023-06-27 10:46 | Outpatient (CLI) | payer MEDICARE, OTHER ==
--- NOTE | 2023-06-27 11:26 | XRAY Report ---
PROCEDURE: Chest 2V INDICATIONS: ACUTE COUGH TECHNIQUE: 2 views of the chest were acquired. COMPARISON: 01/01/2022. FINDINGS: Surgical changes and devices: None. Lungs and pleura: No pleural effusions or pneumothorax. Stable blunting of the costophrenic angles, most consistent with scarring given stability. Lungs are otherwise clear. Mediastinum: Mediastinal contours appear normal. Heart size is normal. Bones and chest wall: No suspicious bony lesions. Overlying soft tissues appear unremarkable. IMPRESSION: No acute cardiopulmonary process. Reviewed by: Scout Rodriguez MD on 06/27/2023 11:24 AM PDT Approved by: Scout Rodriguez MD on 06/27/2023 11:24 AM PDT Station ID: [id number]
== END 2023-06-27 10:47 | disposition home or self-care (01) ==
LOC: DI 10:46
PROVIDERS: ATTEND Internal Medicine
DX: R05.1 Acute cough (principal)